=== PATIENT | female | born 1990 | race Hispanic/Latino ===

== ENCOUNTER 2017-11-30 07:49 | Emergency (ER) | payer SELFPAY ==
--- NOTE | 2017-11-30 08:24 | EDPHYS ---
Physician Documentation [facility] Name: Summer Perez Age: 27 yrs Sex: Female : 1990 Arrival Date: 11/30/2017 Time: 07:54 Bed 17 Private MD: None, None ED Physician Clayton Montejo HPI: 11/30 08:21 This 27 yrs old Female presents to ER via Ambulatory with complaints of Cough, rashid Vomiting, Fever. 08:21 The patient or guardian reports cough. Onset: The symptoms/episode began/occurred 2 rashid day(s) ago. Severity of symptoms: At their worst the symptoms were mild, in the emergency department the symptoms are unchanged. Modifying factors: The symptoms are alleviated by nothing. Associated signs and symptoms: The patient has no apparent associated signs or symptoms. The patient has experienced similar episodes in the past, a few times. 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 - Social history:: Smoking status: Patient/guardian denies using tobacco. - Family history:: not pertinent. ROS: 08:21 Eyes: Negative for injury, pain, redness, and discharge, ENT: Negative for injury, rashid pain, and discharge, Neck: Negative for injury, pain, and swelling, Cardiovascular: Negative for chest pain, palpitations, and edema, Abdomen/GI: Negative for abdominal pain, nausea, vomiting, diarrhea, and constipation, Back: Negative for injury and pain, : Negative for injury, bleeding, discharge, and swelling, MS/Extremity: Negative for injury and deformity, Skin: Negative for injury, rash, and discoloration, Neuro: Negative for headache, weakness, numbness, tingling, and seizure, Psych: Negative for depression, anxiety, suicide ideation, homicidal ideation, and hallucinations, Allergy/Immunology: Negative for hives, rash, and allergies, Endocrine: Negative for neck swelling, polydipsia, polyuria, polyphagia, and marked weight changes, Hematologic/Lymphatic: Negative for swollen nodes, abnormal bleeding, and unusual bruising. 08:21 Constitutional: Positive for chills, fever. 08:21 Respiratory: Positive for cough. Exam: 08:21 Constitutional: This is a well developed, well nourished patient who is awake, alert, rashid and in no acute distress. Head/Face: Normocephalic, atraumatic. Eyes: Pupils equal round and reactive to light, extra-ocular motions intact. Lids and lashes normal. Conjunctiva and sclera are non-icteric and not injected. Cornea within normal limits. Periorbital areas with no swelling, redness, or edema. ENT: Nares patent. No nasal discharge, no septal abnormalities noted. Tympanic membranes are normal and external auditory canals are clear. Oropharynx with no redness, swelling, or masses, exudates, or evidence of obstruction, uvula midline. Mucous membranes moist. Neck: Trachea midline, no thyromegaly or masses palpated, and no cervical lymphadenopathy. Supple, full range of motion without nuchal rigidity, or vertebral point tenderness. No Meningismus. Chest/axilla: Normal chest wall appearance and motion. Nontender with no deformity. No lesions are appreciated. Cardiovascular: Regular rate and rhythm with a normal S1 and S2. No gallops, murmurs, or rubs. Normal PMI, no JVD. No pulse deficits. Abdomen/GI: Soft, non-tender, with normal bowel sounds. No distension or tympany. No guarding or rebound. No evidence of tenderness throughout. Back: No spinal tenderness. No costovertebral tenderness. Full range of motion. Female : Normal external genitalia. Skin: Warm, dry with normal turgor. Normal color with no rashes, no lesions, and no evidence of cellulitis. MS/ Extremity: Pulses equal, no cyanosis. Neurovascular intact. Full, normal range of motion. Neuro: Awake and alert, GCS 15, oriented to person, place, time, and situation. Cranial nerves II-XII grossly intact. Motor strength 5/5 in all extremities. Sensory grossly intact. Cerebellar exam normal. Normal gait. 08:21 Respiratory: the patient does not display signs of respiratory distress, Respirations: normal, Breath sounds: bronchial sounds, that are mild, rhonchi, + upper airway congestion. Vital Signs: 08:05 BP 114 / 42; Pulse 74; Resp 19; Temp 98.4(TE); Pulse Ox 100% on R/A; Weight 108.86 kg; ss Height 5 ft. 6 in. (167.64 cm); Pain 8/10; 09:16 BP 117 / 65; Pulse 70; Resp 19; Temp 98.3(O); Pulse Ox 99% on R/A; ae1 08:05 Body Mass Index 38.74 (108.86 kg, 167.64 cm) ss MDM: 07:56 Patient medically screened. [facility] 08:26 Data reviewed: vital signs, nurses notes, radiologic studies, plain films. [facility] 11/30 09:18 Order name: Urine Dipstick--Ancillary (enter results) [facility] 11/30 09:18 Order name: Urine --Ancillary (enter results) [facility] 11/30 08:04 Order name: Chest Single View XRAY [facility] 11/30 08:04 Order name: Urine Test (obtain specimen); Complete Time: 09:04 [facility] 11/30 08:04 Order name: Urine Dipstick-Ancillary (obtain specimen); Complete Time: 09:04 [facility] Administered Medications: 08:00 Drug: Zithromax 500 mg Route: PO; ae1 09:23 Follow up: Response: No adverse reaction ae1 08:40 Drug: Rocephin (cefTRIAXone) 1 grams Route: IM; Site: left gluteus; ae1 09:22 Follow up: Response: No adverse reaction ae1 08:40 Drug: Zofran 4 mg Route: PO; ae1 09:19 Follow up: Response: Nausea is decreased ae1 Disposition: 11/30/17 08:24 Discharged to Home. Impression: Bronchitis, not specified as acute or chronic, Fever, unspecified, Cough. - Condition is Stable. - Discharge Instructions: Acute Bronchitis, Upper Respiratory Infection, Adult, Cool Mist Vaporizers, Cough, Adult, [id number], Cough, Adult. - Prescriptions for Cheratussin AC 10- 100 mg/5 mL Oral liquid - take 10 milliliter by ORAL route every 4 hours; 150 milliliter. Zofran 4 mg Oral Tablet - take 1 tablet by ORAL route every 12 hours As needed; 14 tablet. Albuterol Sulfate 90 mcg/actuation - inhale 1-2 puff by INHALATION route every 4-6 hours; 1 Inhaler. Zithromax 500 mg Oral Tablet - take 1 tablet by ORAL route once daily for 5 days; 5 tablet. - Medication Reconciliation Form, Thank You Letter, Antibiotic Education, Prescription Opioid Use, Work release form form. - Follow up: Private Physician; When: 2 - 3 days; Reason: Recheck today's complaints, Continuance of care, Re-evaluation by your physician. - Problem is new. - Symptoms have improved. Signatures: Dispatcher [employer] EDClayton Multani MD MD cha Smirch, Shelby, RN RN ss Roberth Cerda RN RN ae1
--- NOTE | 2017-11-30 08:24 | ER ---
Nurse's Notes [facility] Name: Summer Perez Age: 27 yrs Sex: Female : 1990 Arrival Date: 11/30/2017 Time: 07:54 Bed 17 Private MD: None, None Diagnosis: Bronchitis, not specified as acute or chronic;Fever, unspecified;Cough Presentation: 11/30 08:00 Presenting complaint: Patient states: headache, chills, painful/ productive cough, and ss intermittent vomiting x 4 days. Transition of care: patient was not received from another setting of care. Onset of symptoms was November 26, 2017. Initial Sepsis Screen: Does the patient meet any 2 criteria? No. Patient's initial sepsis screen is negative. Does the patient have a suspected source of infection? Yes: Productive cough/pneumonia. Care prior to arrival: None. 08:00 Method Of Arrival: Ambulatory ss 08:00 Acuity: SERAFIN 3 ss Triage Assessment: 08:20 General: Appears uncomfortable, obese, Behavior is cooperative, anxious. Pain: ae1 Complains of pain in chest. EENT: Nares nasal congestion . Neuro: Level of Consciousness is awake, alert, obeys commands, Oriented to person, place, time, situation. Cardiovascular: Heart tones S1 S2 present Patient's skin is warm and dry. Respiratory: Reports cough that is productive, Chest pain with cough Airway is patent Respiratory effort is even, unlabored, Respiratory pattern is regular, symmetrical. GI: Abdomen is round non-distended, obese, Bowel sounds present X 4 quads. Reports nausea, Patient currently denies diarrhea, vomiting. : No signs and/or symptoms were reported regarding the genitourinary system. Derm: Skin is normal. Musculoskeletal: No signs and/or symptoms reported regarding the musculoskeletal system. 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 - Social history:: Smoking status: Patient/guardian denies using tobacco. - Family history:: not pertinent. Screenin:07 Abuse screen: Denies threats or abuse. Nutritional screening: No deficits noted. ae1 Tuberculosis screening: No symptoms or risk factors identified. Fall Risk None identified. Assessment: 09:29 GI: Abdomen is round non-distended, obese. ae1 09:31 Reassessment: Patient appears in no apparent distress at this time. No changes from ae1 previously documented assessment. Vital Signs: 08:05 BP 114 / 42; Pulse 74; Resp 19; Temp 98.4(TE); Pulse Ox 100% on R/A; Weight 108.86 kg; ss Height 5 ft. 6 in. (167.64 cm); Pain 8/10; 09:16 BP 117 / 65; Pulse 70; Resp 19; Temp 98.3(O); Pulse Ox 99% on R/A; ae1 08:05 Body Mass Index 38.74 (108.86 kg, 167.64 cm) ED Course: 07:54 Patient arrived in ED. mr 07:54 None, None is Private Physician. mr 07:55 Roberth Cerda RN is Primary Nurse. ae1 07:56 Clayton Montejo MD is Attending Physician. rashid 08:03 Triage completed. ss 08:05 Arm band placed on right wrist. ss 08:26 Chest Single View XRAY Sent. ae1 08:27 X-ray completed. Portable x-ray completed in exam room. Patient tolerated procedure mh1 well. 08:28 Chest Single View XRAY In Process Unspecified. EDMS 09:07 Placed in gown. Bed in low position. Call light in reach. Side rails up X 1. Pulse ox ae1 on. NIBP on. Warm blanket given. 09:28 No provider procedures requiring assistance completed. Patient did not have IV access ae1 during this emergency room visit. Administered Medications: 08:00 Drug: Zithromax 500 mg Route: PO; ae1 09:23 Follow up: Response: No adverse reaction ae1 08:40 Drug: Rocephin (cefTRIAXone) 1 grams Route: IM; Site: left gluteus; ae1 09:22 Follow up: Response: No adverse reaction ae1 08:40 Drug: Zofran 4 mg Route: PO; ae1 09:19 Follow up: Response: Nausea is decreased ae1 Outcome: 08:24 Discharge ordered by . rashid 09:24 Patient left the ED. ae1 09:29 Discharged to home ambulatory. ae1 09:29 Condition: stable 09:29 Discharge instructions given to patient, Instructed on discharge instructions, Demonstrated understanding of instructions, Prescriptions given X 4. Signatures: Dispatcher [employer] EDClayton Multani MD MD cha Rivera, Maria Eladia Mcdaniel 1 Blank Strange RN RN Roberth Cerda RN RN ae1 Corrections: (The following items were deleted from the chart) 08:06 08:00 Initial Sepsis Screen: Does the patient meet any 2 criteria? HR > 90 bpm. Does ss the patient have a suspected source of infection? Yes: Productive cough/pneumonia ss
[2017-11-30] MEDS ORDERED: CEFTRIAXONE 1000 MG/VIAL ONE (08:54)
[2017-11-30] MEDS ORDERED: AZITHROMYCIN 250 MG TAB ONE (08:54)
[2017-11-30] MEDS ORDERED: ONDANSETRON 4 MG (ODT) TAB ONE (08:54)
[2017-11-30 09:29] VITALS: BP 117/65; TEMP 98.3; O2SAT 99
--- NOTE | 2017-11-30 10:57 | RAD REPORT ---
EXAM DESCRIPTION: RAD - Chest Single View - 11/30/2017 8:27 am CLINICAL HISTORY: Headache COMPARISON: 02/03/2016 FINDINGS: Portable technique limits examination quality. The lungs are grossly clear. The heart is normal in size. No displaced fractures. IMPRESSION: No acute intrathoracic process suspected.
[2017-11-30 11:46] LABS: Urine Blood NEGATIVE (NEG); Urine Glucose NEGATIVE (NEG); Urine Protein NEGATIVE (NEG); Urine Specific Gravity 1.025 (1.005-1.030)
== END 2017-11-30 09:24 | disposition home or self-care (01) ==
LOC: ER 07:49
DX: J40 Bronchitis, not specified as acute or chronic (principal); R50.9 Fever, unspecified
CPT/HCPCS: 71045; 81003; 81025; 96372; 99284

== ENCOUNTER 2018-10-02 15:17 | Emergency (ER) | payer SELFPAY ==
[2018-10-02 16:33] LABS: Absolute Lymphocytes (CBC) 2.9 K/uL (0.7-4.9); Absolute Monocytes 0.6 K/uL (0.1-1.3); Absolute Neutrophil 3.4 K/uL (1.8-8.0); Basophils % 1.3 % (0-1.3); Eosinophils % 8.7 % (0-4.4); Hematocrit 39.9 % (36.0-45.0); Lymphocytes % 37.6 % (15.3-44.8); MPV 8.7 fL (7.6-11.3); Monocytes % 8.3 % (3.3-12.3)
[2018-10-02 16:59] LABS: ALT/SGPT 27 U/L (12-78); AST/SGOT 16 U/L (15-37); Albumin 3.7 g/dL (3.4-5.0); Alkaline Phosphatase 95 U/L (45-117); BUN Blood Urea Nitrogen 10 mg/dL (7-18); Bicarbonate 27 mmol/L (21-32); Bilirubin Direct 0.1 mg/dL (0-0.2); Bilirubin Total 0.5 mg/dL (0.2-1.0); Glucose Level 73 mg/dL (74-106); Magnesium 2.1 mg/dL (1.8-2.4); NT PRO-BNP 16 pg/mL (<125); Potassium 3.8 mmol/L (3.5-5.1); Protein, Total 7.4 g/dL (6.4-8.2); Sodium Level 139 mmol/L (136-145); Troponin (Emerg Dept Use Only) < 0.02 ng/mL (0.0-0.045)
--- NOTE | 2018-10-02 17:24 | RAD REPORT ---
EXAM DESCRIPTION: Maru Single View10/02/2018 5:09 pm CLINICAL HISTORY: Chest pain COMPARISON: November 2017 FINDINGS: The lungs appear clear of acute infiltrate. The heart is normal size IMPRESSION: No acute abnormalities displayed
[2018-10-02 17:40] LABS: Protime INR 0.96
--- NOTE | 2018-10-02 17:57 | EDPHYS ---
Physician Documentation [facility] Name: Summer Perez Age: 28 yrs Sex: Female : 1990 Arrival Date: 10/02/2018 Time: 15:20 Bed 20 Private MD: ED Physician Clayton Montejo HPI: 10/02 15:52 This 28 yrs old Female presents to ER via Ambulatory with complaints of Chest jmm Pain, Dizziness. 15:52 The patient or guardian reports chest pain that is located primarily in the anterior [facility] chest wall. The pain radiates to the left shoulder, neck. Associated signs and symptoms: Pertinent positives:. The chest pain is described as aching, sharp. This is a 28 year old female with no chronic medical conditions that presents to the ED with complaints of chest pain radiating to her neck, left arm beginning at approx 1200 today. 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 Patient complaints of numbness to the face and lips. Patient admits to tobacco use, denies recreational drug use. Denies family history of CAD. . 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 - Social history:: Smoking status: Patient/guardian denies using tobacco. - Ebola Screening: : No symptoms or risks identified at this time. ROS: 15:52 Constitutional: Negative for fever, chills, and weight loss. jmm 15:52 Respiratory: Negative for shortness of breath, cough, wheezing, and pleuritic chest pain. 15:52 Neck: 15:52 Cardiovascular: Positive for chest pain. 15:52 Neuro: Positive for numbness. 15:52 All other systems are negative. Exam: 15:52 Constitutional: This is a well developed, well nourished patient who is awake, alert, jmm and in no acute distress. Head/Face: atraumatic. Eyes: EOMI, no conjunctival erythema appreciated ENT: Moist Mucus Membranes Neck: Trachea midline, Supple 15:52 Chest/axilla: Inspection: normal, Palpation: tenderness, that totally reproduces the patient's complaints. 15:52 Cardiovascular: Rate: normal, Rhythm: regular. 15:52 Respiratory: the patient does not display signs of respiratory distress, Respirations: normal, Breath sounds: are clear throughout. 15:52 Abdomen/GI: 15:52 Back: ROM is normal. 15:52 Musculoskeletal/extremity: ROM: intact in all extremities. 15:52 Skin: Appearance: Color: normal in color. 15:52 Neuro: Orientation: is normal, Mentation: is normal, Memory: is normal. 15:52 Psych: Behavior/mood is pleasant, cooperative. Vital Signs: 15:28 BP 178 / 102; Pulse 98; Resp 16; Temp 98.6; Pulse Ox 100% on R/A; Pain 9/10; hb 15:42 BP 144 / 89; Pulse 78; Resp 15; Pulse Ox 100% on R/A; tw2 16:27 BP 134 / 85; Pulse 76; Resp 17; Pulse Ox 100% on R/A; tw2 17:38 BP 142 / 85; Pulse 78; Resp 19; Pulse Ox 100% on R/A; tw2 18:34 BP 133 / 73; Pulse 67; Resp 17; Pulse Ox 100% on R/A; tw2 MDM: 15:52 Patient medically screened. rashid 17:53 WILLIAM Risk Score: TOTAL SCORE = 0. Data reviewed: vital signs, nurses notes, lab test [facility] result(s), EKG, radiologic studies, plain films. Data interpreted: Pulse oximetry: on room air is 100 %. Interpretation: normal. Test interpretation: by ED physician or midlevel provider: ECG. Counseling: I had a detailed discussion with the patient and/or guardian regarding: the historical points, exam findings, and any diagnostic results supporting the discharge/admit diagnosis, lab results, radiology results, the need for outpatient follow up, to return to the emergency department if symptoms worsen or persist or if there are any questions or concerns that arise at home. ED course: HEART SCORE = 1. Low likelihood of ACS. Pain is reproducible. Patient advised to follow up with cardiology for outpatient evaluation. Patient given strict return precautions. Patient understood and agrees with the plan of care. . 10/02 16:01 Order name: Basic Metabolic Panel; Complete Time: 17:03 [facility] 10/02 16:01 Order name: CBC with Diff; Complete Time: 17:03 [facility] 10/02 16:01 Order name: LFT's; Complete Time: 17: [facility] 10/02 16:01 Order name: Magnesium; Complete Time: 17:03 [facility] 10/02 16:01 Order name: NT PRO-BNP; Complete Time: 17:03 [facility] 10/02 16:01 Order name: PT-INR; Complete Time: 17:42 [facility] 10/02 15:31 Order name: EKG - Nurse/Tech; Complete Time: 15:42 10/02 15:31 Order name: EKG; Complete Time: 15:32 10/02 16:01 Order name: Troponin (emerg Dept Use Only); Complete Time: 17:03 [facility] 10/02 16:01 Order name: XRAY Chest (1 view); Complete Time: 17:26 [facility] 10/02 16:01 Order name: Cardiac monitoring; Complete Time: 16:01 [facility] 10/02 16:01 Order name: TSH; Complete Time: 17:03 [facility] 10/02 16:01 Order name: D-Dimer; Complete Time: 17:42 [facility] 10/02 16:01 Order name: IV Saline Lock; Complete Time: 16:27 [facility] 10/02 16:01 Order name: Labs collected and sent; Complete Time: 16:27 [facility] 10/02 16:01 Order name: O2 Per Protocol; Complete Time: 16:01 [facility] 10/02 16:01 Order name: O2 Sat Monitoring; Complete Time: 16:01 [facility] 10/02 16:16 Order name: Urine Dipstick-Ancillary (obtain specimen); Complete Time: 17:55 jmm Administered Medications: 18:00 Drug: Ketorolac 30 mg Route: IVP; Site: right antecubital; tw2 18:34 Follow up: Response: No adverse reaction tw2 Disposition: 10/03 07:02 Co-signature as Attending Physician, Clayton Montejo MD I agree with the assessment and rashid plan of care. Disposition: 10/02/18 17:56 Discharged to Home. Impression: Chest pain, unspecified. - Condition is Stable. - Discharge Instructions: Nonspecific Chest Pain. - Prescriptions for Ibuprofen 800 mg Oral Tablet - take 1 tablet by ORAL route every 8 hours As needed take with food; 30 tablet. - Medication Reconciliation Form, Thank You Letter, Antibiotic Education, Prescription Opioid Use, Work release form, Family Work Release form. - Follow up: Robbin Duffy MD; When: 2 - 3 days; Reason: Recheck today's complaints, Continuance of care, Re-evaluation by your physician. Signatures: Dispatcher [employer] EDClayton Multani MD MD cha Mickail, Joel, PA PA jmm Baxter, Heather, RN RN Rowan Quintero RN RN tw2 Corrections: (The following items were deleted from the chart) 10/02 18:37 17:56 10/02/2018 17:56 Discharged to Home. Impression: Chest pain, unspecified. tw2 Condition is Stable. Forms are Medication Reconciliation Form, Thank You Letter, Antibiotic Education, Prescription Opioid Use. Follow up: Robbin Duffy; When: 2 - 3 days; Reason: Recheck today's complaints, Continuance of care, Re-evaluation by your physician. sabine
--- NOTE | 2018-10-02 17:57 | ER ---
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 Also c/o bilateral shoulder and low back pain x 2 days. Transition of care: patient was not received from another setting of care. Onset of symptoms was October 01, 2018. Risk Assessment: Do you want to hurt yourself or someone else? Patient reports no desire to harm self or others. Care prior to arrival: None. 15:26 Method Of Arrival: Ambulatory 15:26 Acuity: SERAFIN 3 hb 15:30 Initial Sepsis Screen: Does the patient meet any 2 criteria? No. Patient's initial tw2 sepsis screen is negative. Does the patient have a suspected source of infection? No. Patient's initial sepsis screen is negative. 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 - Social history:: Smoking status: Patient/guardian denies using tobacco. - Ebola Screening: : No symptoms or risks identified at this time. Screenin:30 Abuse screen: Denies threats or abuse. Nutritional screening: No deficits noted. tw2 Tuberculosis screening: No symptoms or risk factors identified. Fall Risk None identified. Assessment: 15:30 General: Appears in no apparent distress. obese, Behavior is anxious, pt reports tw2 "recently my mother passed and it just hit me today while i was at work". Pain: Complains of pain in chest Pain does not radiate. Pain began suddenly. Neuro: Level of Consciousness is awake, alert, obeys commands, Oriented to person, place, time, situation. Cardiovascular: Heart tones S1 S2 Patient's skin is warm and dry. Cardiovascular: Reports chest pain. Respiratory: Airway is patent Respiratory effort is even, unlabored, Respiratory pattern is regular, symmetrical, Breath sounds are clear bilaterally. GI: No signs and/or symptoms were reported involving the gastrointestinal system. Abdomen is round distended, obese, Bowel sounds present X 4 quads. : No signs and/or symptoms were reported regarding the genitourinary system. EENT: No signs and/or symptoms were reported regarding the EENT system. Derm: No signs and/or symptoms reported regarding the dermatologic system. Musculoskeletal: Range of motion: intact in all extremities. 16:27 Reassessment: Patient appears in no apparent distress at this time. No changes from tw2 previously documented assessment. Patient and/or family updated on plan of care and expected duration. Pain level reassessed. Patient is alert, oriented x 3, equal unlabored respirations, skin warm/dry/pink. 17:39 Reassessment: Patient appears in no apparent distress at this time. No changes from tw2 previously documented assessment. Patient and/or family updated on plan of care and expected duration. Pain level reassessed. Patient is alert, oriented x 3, equal unlabored respirations, skin warm/dry/pink. 18:35 Reassessment: Patient appears in no apparent distress at this time. No changes from tw2 previously documented assessment. Patient and/or family updated on plan of care and expected duration. Pain level reassessed. Patient is alert, oriented x 3, equal unlabored respirations, skin warm/dry/pink. Vital Signs: 15:28 BP 178 / 102; Pulse 98; Resp 16; Temp 98.6; Pulse Ox 100% on R/A; Pain 9/10; hb 15:42 BP 144 / 89; Pulse 78; Resp 15; Pulse Ox 100% on R/A; tw2 16:27 BP 134 / 85; Pulse 76; Resp 17; Pulse Ox 100% on R/A; tw2 17:38 BP 142 / 85; Pulse 78; Resp 19; Pulse Ox 100% on R/A; tw2 18:34 BP 133 / 73; Pulse 67; Resp 17; Pulse Ox 100% on R/A; tw2 ED Course: 15:20 Patient arrived in ED. rg4 15:28 Triage completed. hb 15:28 Arm band placed on. hb 15:30 Rowan Quintero, RN is Primary Nurse. tw2 15:30 Placed in gown. Bed in low position. Adult w/ patient. ammonium hydroxide operator on. Pulse ox on. tw2 NIBP on. Warm blanket given. 15:46 Mickail, Aj, PA is PHCP. [facility] 15:46 Clayton Montejo MD is Attending Physician. [facility] 15:46 EKG done, by loss control technician. reviewed by Clayton Montejo MD. dt2 16:22 Inserted saline lock: 20 gauge in right antecubital area, using aseptic technique. tw2 ,using aseptic technique. labels verified by pt at bedside Blood collected. Patient maintains SpO2 saturation greater than 95% on room air. 17:11 XRAY Chest (1 view) In Process Unspecified. EDMS 17:55 Robbin Duffy MD is Referral Physician. [facility] 18:37 No provider procedures requiring assistance completed. IV discontinued, intact, tw2 bleeding controlled, No redness/swelling at site. Pressure dressing applied. Administered Medications: 18:00 Drug: Ketorolac 30 mg Route: IVP; Site: right antecubital; tw2 18:34 Follow up: Response: No adverse reaction tw2 Outcome: 17:56 Discharge ordered by MD. jm 18:37 Patient left the ED. tw2 18:37 Discharged to home ambulatory, with significant other. tw2 18:37 Condition: stable 18:37 Discharge instructions given to patient, significant other, Instructed on discharge instructions, follow up and referral plans. medication usage, Demonstrated understanding of instructions, follow-up care, medications, Prescriptions given X 1. Signatures: Dispatcher [employer] EDMS Aj Moncada PA PA Tamera Pascal RN RN Rowan Quintero RN RN tw2 Miri Edge 4 Ciarra Mejia dt2
[2018-10-02] MEDS ORDERED: KETOROLAC 30 MG/ML INJ ONE (18:08)
--- NOTE | 2018-10-02 19:04 | EKG ---
Test Date: 2018-10-02 Test Time: 15:40:45 Delinquent Account Clerk: INOCENTE MEASUREMENT RESULTS: Intervals: Rate: 80 SD: 162 QRSD: 84 QT: 380 QTc: [address]: P: 34 SD: 162 QRS: 40 T: 38 INTERPRETIVE STATEMENTS: Normal sinus rhythm Cannot rule out Anterior infarct, age undetermined Abnormal ECG Compared to ECG 02/03/2016 09:22:42 Myocardial infarct finding now present Sinus arrhythmia no longer present Electronically Signed On 10-02-18 19:02:47 PROCESS SPECIALIST by Robbin Duffy
[2018-10-02 19:12] VITALS: TEMP 98.6; O2SAT 100
[2018-10-02 19:17] VITALS: BP 133/73
== END 2018-10-02 18:37 | disposition home or self-care (01) ==
LOC: ER 15:17
DX: R07.9 Chest pain, unspecified (principal); R42 Dizziness and giddiness
CPT/HCPCS: 36415; 71045; 80048; 80076; 83735; 83880; 84443; 84484; 85025; 85379; 85610; 93005; 96374; 99285

== ENCOUNTER 2018-10-26 22:12 | Emergency (ER) | payer SELFPAY ==
[2018-10-26 23:14] LABS: Absolute Lymphocytes (CBC) 2.5 K/uL (0.7-4.9); Absolute Monocytes 0.8 K/uL (0.1-1.3); Absolute Neutrophil 3.4 K/uL (1.8-8.0); Eosinophils % 5.3 % (0-4.4); Hematocrit 39.2 % (36.0-45.0); Lymphocytes % 35.5 % (15.3-44.8); MPV 9.1 fL (7.6-11.3); Monocytes % 10.9 % (3.3-12.3); RBC Red Blood Cell Count 4.79 M/uL (3.86-4.86)
[2018-10-26 23:24] LABS: BUN Blood Urea Nitrogen 12 mg/dL (7-18); Bicarbonate 25 mmol/L (21-32); Glucose Level 110 mg/dL (74-106); Potassium 3.9 mmol/L (3.5-5.1); Sodium Level 142 mmol/L (136-145)
[2018-10-26] MEDS ORDERED: MECLIZINE HCL 12.5 MG TAB ONE (23:29)
[2018-10-26] MEDS ORDERED: NA CHLORIDE 0.9% 1,000 ML ONE (23:29)
[2018-10-26] MEDS ORDERED: DIAZEPAM 5 MG TABLET ONE (23:29)
[2018-10-27 00:15] LABS: Urine Blood 2+ (NEG); Urine Glucose NEGATIVE (NEG); Urine Protein NEGATIVE (NEG); Urine Specific Gravity >1.030 (1.005-1.030)
--- NOTE | 2018-10-27 00:34 | ER ---
Nurse's Notes [facility] Name: Summer Perez Age: 28 yrs Sex: Female : 1990 Arrival Date: 10/26/2018 Time: 22:13 Bed 19 Private MD: Diagnosis: Paresthesia of skin-Lelft sided;Dizziness and giddiness;Syncope and collapse;Weakness Presentation: 10/26 22:13 Presenting complaint: EMS states: Pt reported feeling tingling on the left arms and jb4 face after going to the grocery store with her boyfriend. Boyfriend reports that after they got home she was breathing fast and passed out. 22:13 Transition of care: patient was not received from another setting of care. Onset of jb4 symptoms was October 26, 2018. Risk Assessment: Do you want to hurt yourself or someone else? Patient reports no desire to harm self or others. Initial Sepsis Screen: Does the patient meet any 2 criteria? No. Patient's initial sepsis screen is negative. Does the patient have a suspected source of infection? No. Patient's initial sepsis screen is negative. Care prior to arrival: None. 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 - Social history:: Smoking status: Patient/guardian denies using tobacco, Patient/guardian denies using alcohol. - Ebola Screening: : No symptoms or risks identified at this time. Screenin:51 Abuse screen: Denies threats or abuse. Nutritional screening: No deficits noted. ea Tuberculosis screening: No symptoms or risk factors identified. Fall Risk None identified. Assessment: 22:51 General: Appears uncomfortable, Behavior is calm, cooperative, appropriate for age. ea Pain: Complains of pain in chest. 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 Speech is normal, Facial symmetry appears normal, pt reports tingling on left side of face that travels to left shoulder and arm. Cardiovascular: Patient's skin is warm and dry. Respiratory: Airway is patent Respiratory effort is even, unlabored, Respiratory pattern is regular, symmetrical. GI: Abdomen is non-distended. Derm: Skin is pink, warm \T\ dry. 23:45 Reassessment: Patient and/or family updated on plan of care and expected duration. Pain ea level reassessed. Patient is alert, oriented x 3, equal unlabored respirations, skin warm/dry/pink. 10/27 00:51 Reassessment: Patient and/or family updated on plan of care and expected duration. Pain ea level reassessed. Patient is alert, oriented x 3, equal unlabored respirations, skin warm/dry/pink. Discharge instructions given to patient, verbalized the understanding of instruction Patient states symptoms have improved. Vital Signs: 10/26 22:13 BP 134 / 74; Pulse 81; Resp 16; Temp 98.4; Pulse Ox 100% on R/A; Weight 90.72 kg (R); jb4 Height 5 ft. 4 in. (162.56 cm) (R); Pain 10/10; 23:50 BP 117 / 59; Pulse 80; Resp 18 S; Pulse Ox 98% on R/A; ea 10/27 00:40 BP 123 / 63; Pulse 74; Resp 18; Pulse Ox 97% on R/A; ea 10/26 22:13 Body Mass Index 34.33 (90.72 kg, 162.56 cm) jb4 ED Course: 10/26 22:13 Patient arrived in ED. ds1 22:13 Arm band placed on right wrist. jb4 22:22 Triage completed. jb4 22:31 Carlos Van MD is Attending Physician. kdr 22:50 Elizabeth Mcdonald RN is Primary Nurse. ea 22:51 Patient has correct armband on for positive identification. Placed in gown. Bed in low ea position. Call light in reach. Side rails up X2. 23:[address] via wheelchair. nj 23:32 CT completed. Patient tolerated procedure well. Patient moved back from CT. nj 23:33 CT Head Brain wo Cont In Process Unspecified. EDMS 10/27 00:52 No provider procedures requiring assistance completed. IV discontinued, intact, ea bleeding controlled, No redness/swelling at site. Pressure dressing applied. Administered Medications: 10/26 23:30 Drug: NS 0.9% 1000 ml Route: IV; Rate: 1 bolus; Site: right antecubital; ea 10/27 00:30 Follow up: Response: No adverse reaction; IV Status: Completed infusion; IV Intake: ea 1000ml 10/26 23:30 Drug: Antivert 25 mg Route: PO; ea 10/27 00:06 Follow up: Response: No adverse reaction ea 10/26 23:30 Drug: Valium 5 mg Route: PO; ea 10/27 00:06 Follow up: Response: No adverse reaction ea Intake: 00:30 IV: 1000ml; Total: 1000ml. ea Outcome: 00:34 Discharge ordered by . kdr 00:52 Condition: improved ea 00:52 Discharge instructions given to patient, Instructed on discharge instructions, follow up and referral plans. medication usage, Demonstrated understanding of instructions, follow-up care, medications, Prescriptions given X 2. 00:57 Patient left the ED. ea 00:57 Discharged to home ambulatory, with significant other. ea Signatures: Dispatcher [employer] EDMS Carlos Van MD MD kdr Sanford, Demi ds1 Bj Youngblood, RN RN Peter Cedillo Elena RN RN dorothy
--- NOTE | 2018-10-27 00:34 | EDPHYS ---
Physician Documentation [facility] Name: Summer Perez Age: 28 yrs Sex: Female : 1990 Arrival Date: 10/26/2018 Time: 22:13 Bed 19 Private MD: ED Physician Carlos Van HPI: 10/27 00:31 This 28 yrs old Female presents to ER via EMS with complaints of tingling and kdr syncope. 00:53 The patient has experienced syncope, became unresponsive, collapsed, lost kdr consciousness. Onset: The symptoms/episode began/occurred suddenly, just prior to arrival. Duration: This was a single episode, that lasted 15 minute(s). Context: the episode(s) was witnessed, by a friend, occurred at home, occurred while the patient was at rest, Just prior to the episode the patient experienced lightheadedness, numbness, tingling, weakness, The patient generally felt weak and had left sided tingling. Associated injury: The patient did not suffer any apparent associated injury. Associated signs and symptoms: Pertinent positives: dizziness, tingling, weakness. Current symptoms: Generalized weakness and slight tingling to the left side of her face. The patient has not experienced similar symptoms in the past. The patient has not recently seen a physician. 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 - Social history:: Smoking status: Patient/guardian denies using tobacco, Patient/guardian denies using alcohol. - Ebola Screening: : No symptoms or risks identified at this time. ROS: 10/27 00:53 Constitutional: Negative for fever, chills, and weight loss generalized weakness, kdr fatigue Eyes: Negative for injury, pain, redness, and discharge, ENT: Negative for injury, pain, and discharge, Neck: Negative for injury, pain, and swelling, Cardiovascular: Negative for chest pain, palpitations, and edema, Respiratory: Negative for shortness of breath, cough, wheezing, and pleuritic chest pain, Abdomen/GI: Negative for abdominal pain, nausea, vomiting, diarrhea, and constipation, Back: Negative for injury and pain, : Negative for injury, bleeding, discharge, and swelling, MS/Extremity: Negative for injury and deformity, Skin: Negative for injury, rash, and discoloration, Psych: Negative for depression, anxiety, suicide ideation, homicidal ideation, and hallucinations, Allergy/Immunology: Negative for hives, rash, and allergies, Endocrine: Negative for neck swelling, polydipsia, polyuria, polyphagia, and marked weight changes, Hematologic/Lymphatic: Negative for swollen nodes, abnormal bleeding, and unusual bruising. Neuro: Positive for syncope, tingling, weakness. Exam: 00:53 Constitutional: This is a well developed, well nourished patient who is awake, alert, kdr and in no acute distress. Head/Face: Normocephalic, atraumatic. Eyes: Pupils equal round and reactive to light, extra-ocular motions intact. Lids and lashes normal. Conjunctiva and sclera are non-icteric and not injected. Cornea within normal limits. Periorbital areas with no swelling, redness, or edema. ENT: Nares patent. No nasal discharge, no septal abnormalities noted. Tympanic membranes are normal and external auditory canals are clear. Oropharynx with no redness, swelling, or masses, exudates, or evidence of obstruction, uvula midline. Mucous membranes moist. Neck: Trachea midline, no thyromegaly or masses palpated, and no cervical lymphadenopathy. Supple, full range of motion without nuchal rigidity, or vertebral point tenderness. No Meningismus. Chest/axilla: Normal chest wall appearance and motion. Nontender with no deformity. No lesions are appreciated. Cardiovascular: Regular rate and rhythm with a normal S1 and S2. No gallops, murmurs, or rubs. Normal PMI, no JVD. No pulse deficits. Respiratory: Lungs have equal breath sounds bilaterally, clear to auscultation and percussion. No rales, rhonchi or wheezes noted. No increased work of breathing, no retractions or nasal flaring. Abdomen/GI: Soft, non-tender, with normal bowel sounds. No distension or tympany. No guarding or rebound. No evidence of tenderness throughout. Back: No spinal tenderness. No costovertebral tenderness. Full range of motion. Skin: Warm, dry with normal turgor. Normal color with no rashes, no lesions, and no evidence of cellulitis. MS/ Extremity: Pulses equal, no cyanosis. Neurovascular intact. Full, normal range of motion. Neuro: Awake and alert, GCS 15, oriented to person, place, time, and situation. Cranial nerves II-XII grossly intact. Motor strength 5/5 in all extremities. Sensory grossly intact. Cerebellar exam normal. Normal gait. Psych: Awake, alert, with orientation to person, place and time. Behavior, mood, and affect are within normal limits. Vital Signs: 10/26 22:13 BP 134 / 74; Pulse 81; Resp 16; Temp 98.4; Pulse Ox 100% on R/A; Weight 90.72 kg (R); jb4 Height 5 ft. 4 in. (162.56 cm) (R); Pain 10/10; 23:50 BP 117 / 59; Pulse 80; Resp 18 S; Pulse Ox 98% on R/A; ea 10/27 00:40 BP 123 / 63; Pulse 74; Resp 18; Pulse Ox 97% on R/A; ea 10/26 22:13 Body Mass Index 34.33 (90.72 kg, 162.56 cm) jb4 MDM: 00:34 Patient medically screened. kdr 00:53 Data reviewed: vital signs, nurses notes, lab test result(s), radiologic studies. kdr Counseling: I had a detailed discussion with the patient and/or guardian regarding: the historical points, exam findings, and any diagnostic results supporting the discharge/admit diagnosis, lab results, radiology results, the need for outpatient follow up. ED course: The patient is not on any medications and does not have a known hypercoagulable state. No reason by history or exam to have a CVA. 10/26 22:42 Order name: CBC with Diff; Complete Time: 00:07 kdr 10/26 22:42 Order name: Chem 7; Complete Time: 00:07 kdr 10/27 00:06 Order name: Urine Dipstick--Ancillary (enter results) md 10/27 00:06 Order name: Urine --Ancillary (enter results) md 10/27 00:15 Order name: Urine --Ancillary [facility] 10/27 00:15 Order name: Urine Dipstick-Ancillary [facility] 10/26 22:42 Order name: Urine Dipstick-Ancillary (obtain specimen); Complete Time: 00:06 kdr 10/26 22:42 Order name: Urine Test (obtain specimen); Complete Time: 00:06 kdr 10/26 22:54 Order name: CT Head Brain wo Cont kdr Administered Medications: 10/26 23:30 Drug: NS 0.9% 1000 ml Route: IV; Rate: 1 bolus; Site: right antecubital; ea 10/27 00:30 Follow up: Response: No adverse reaction; IV Status: Completed infusion; IV Intake: ea 1000ml 10/26 23:30 Drug: Antivert 25 mg Route: PO; ea 10/27 00:06 Follow up: Response: No adverse reaction ea 10/26 23:30 Drug: Valium 5 mg Route: PO; ea 10/27 00:06 Follow up: Response: No adverse reaction ea Disposition: 10/27/18 00:34 Discharged to Home. Impression: Paresthesia of skin - Lelft sided, Dizziness and giddiness, Syncope and collapse, Weakness. - Condition is Stable. - Discharge Instructions: Vertigo, [id number], Weakness, Kfyl-za-Jmrs, Dizziness, Gjrv-[id number]. - Prescriptions for Antivert 25 mg Oral Tablet - take 1 tablet by ORAL route every 8 hours As needed; 20 tablet. Valium 5 mg Oral Tablet - take 1 tablet by ORAL route every 8 hours As needed; 6 tablet. - Medication Reconciliation Form, Thank You Letter form. - Follow up: Private Physician; When: 2 - 3 days; Reason: If symptoms return, Further diagnostic work-up, Recheck today's complaints, Continuance of care, Re-evaluation by your physician. - Problem is new. - Symptoms have improved. Signatures: Dispatcher [employer] EDMS Carlos Van MD MD kdr Bryson, James, RN RN jb4 Elizabeth Mcdonald RN RN ea Corrections: (The following items were deleted from the chart) 00:57 00:34 10/27/2018 00:34 Discharged to Home. Impression: Paresthesia of skin - Lelft ea sided; Dizziness and giddiness; Syncope and collapse; Weakness. Condition is Stable. Forms are Medication Reconciliation Form, Thank You Letter, Antibiotic Education, Prescription Opioid Use. Follow up: Private Physician; When: 2 - 3 days; Reason: If symptoms return, Further diagnostic work-up, Recheck today's complaints, Continuance of care, Re-evaluation by your physician. Problem is new. Symptoms have improved. kdr
[2018-10-27 01:18] VITALS: TEMP 98.4
[2018-10-27 01:26] VITALS: BP 123/63; O2SAT 97
--- NOTE | 2018-10-27 09:21 | EKG ---
Test Date: 2018-10-26 Test Time: 22:20:42 Investment Representative: GM MEASUREMENT RESULTS: Intervals: Rate: 83 NM: 164 QRSD: 80 QT: 364 QTc: 427 [place]: P: 66 NM: 164 QRS: 45 T: 33 INTERPRETIVE STATEMENTS: Normal sinus rhythm Cannot rule out Anterior infarct, age undetermined Abnormal ECG Compared to ECG 10/02/2018 15:40:45 No significant changes Electronically Signed On 10-27-18 09:21:07 CDT by Robbin Duffy
--- NOTE | 2018-10-27 12:11 | RAD REPORT ---
EXAM DESCRIPTION: Head Brain Wo Cont CLINICAL HISTORY: 28 years Female tingling on left side of face/body and syncope COMPARISON: None TECHNIQUE: Images were obtained in axial, sagittal, and coronal planes. This exam was performed according to our departmental dose-optimization program which includes use of Automated Exposure Control, adjustment of the mA and/or kV according to patient size and/or use of i terative reconstruction technique. FINDINGS: Ventricular system appears normal. No abnormal areas of increased or decreased attenuation are seen involving the brain parenchyma. No e xtra-axial fluid collections noted. No evidence for skull fracture. Symmetric aeration of mastoid air cells bilaterally. Mild mucosal thi ckening left maxillary antrum. IMPRESSION: No acute intracranial abnormality. No evidence for hemorrhage, mass lesion, or large acu te infarction. Electronically signed by: Sulma Morales MD 10/26/2018 11:36 PM CDT Due to temporary technical issues with the PACS/Fluency reporting system, reports are being signed by the in house radiologist as a courtesy to ensure prompt reporting. The interpreting radiologist is f ully responsible for the content of the report.
== END 2018-10-27 00:57 | disposition home or self-care (01) ==
LOC: ER 22:12
DX: R55 Syncope and collapse (principal); R42 Dizziness and giddiness; R53.1 Weakness
CPT/HCPCS: 36415; 70450; 80048; 81003; 81025; 85025; 93005; 96360; 99284; J7030

== ENCOUNTER 2020-07-29 16:54 | Emergency (ER) | payer SELFPAY ==
--- OUTSIDE RECORDS SUMMARY | 2020-07-29 16:57 | XMS REPORT | Continuity of Care Document ---
:1990 Author Organization [facility] t Address [address] [place] [address] Care Team Providers Name Role Phone Unavailable Unavailable Unavailable Problems This patient has no known problems. Allergies, Adverse Reactions, Alerts This patient has no known allergies or adverse reactions. Social History Smoking Status Start Date Stop Date Source Heavy Tobacco Smoker [facility] Medications Ordered Filled Start Stop Current Ordering Indication Dosage Frequency Signature Comments Components Source Medication Medication Date Date Medication? Clinician (SIG) Name Name dicyclomine dicyclomine No 1 QID dicyclomin [place] 20 mg 20 mg e 20 mg da tablet Take tablet Take tablet [facility] 1 tablet 4 1 tablet 4 Take 1 a l times a day times a day tablet 4 Health by oral by oral times a Outrea c route as route as day by h needed. needed. oral route Pro gram as needed. Vital Signs Vital Name Observation Time Observation Value Comments Source BP Diastolic 2020-04-23 00:00:00 78 mm[Hg] [facility] Height 2020-04-23 00:00:00 66 [in_i] [facility] BMI (Body Mass 2020-04-23 00:00:00 42.7 kg/m2 [place] plumbing [facility] Index) [facility] BP Systolic 2020-04-23 00:00:00 138 mm[Hg] [facility] Body Weight 2020-04-23 00:00:00 264.8 [lb_av] [facility] Procedures Procedure Date / Time Performing Clinician Source Performed Bilateral Tubal Ligation [facility] Appendectomy [facility] Plan of Care Planned Activity Planned Date Details Comments Source Diagnostic Test 2020-04-23 CMP, serum or [facility] Pending 00:00:00 plasma [code = Health Outrea ch CMP, serum or Program plasma] Diagnostic Test 2020-04-23 CBC w/ auto diff [facility] Pending 00:00:00 [code = CBC w/ Health Outrea ch auto diff] Program Diagnostic Test 2020-04-23 TSH, [facility] Pending 00:00:00 ultra-sensitive, Health Outr each serum [code = TSH, Program ultra-sensitive, serum] Diagnostic Test 2020-04-23 lipase, serum or [place] [facility] Pending 00:00:00 plasma [code = Health Outrea ch lipase, serum or Program plasma] Encounters Start End Encounter Admission Attending Care Care Encounter Source Date/Time Date/Time Type Type Clinicians Facility Department ID 2020-04-23 2020-04-23 Carlitos José CAAMPARO [place] - [id number] [place] 00:00:00 00:00:00 Samson Rocha MD: [id number] [facility] [employer] [employer] helicopter [employer] [place] [address] [facility] [address], [place] [facility] [id number] , Ph. Results This patient has no known results.
[2020-07-29] MEDS ORDERED: KETOROLAC 30 MG/ML INJ ONE (18:32)
--- NOTE | 2020-07-29 19:00 | RAD REPORT ---
EXAM DESCRIPTION: Maru Silverman (2 Views)07/29/2020 6:53 pm CLINICAL HISTORY: Cough COMPARISON: 2019 FINDINGS: The lungs appear clear of acute infiltrate. The heart is normal size IMPRESSION: No acute abnormalities displayed
--- NOTE | 2020-07-29 19:15 | ER ---
Nurse's Notes [facility] Name: Summer Perez Age: 30 yrs Sex: Female : 1990 Arrival Date: 07/29/2020 Time: 16:56 Bed 5 Private MD: Diagnosis: Chest pain on breathing Presentation: 07/29 17:18 Chief complaint: Patient states: reports pain with inspiration, vomited one time today, em denies cough or fever, started this morning. Coronavirus screen: Client denies travel out of the [place] in the last 14 days. Ebola Screen: Patient negative for fever greater than or equal to 101.5 degrees Fahrenheit, and additional compatible Ebola Virus Disease symptoms Patient denies exposure to infectious person. Patient denies travel to an Ebola-affected area in the 21 days before illness onset. No symptoms or risks identified at this time. Initial Sepsis Screen: Does the patient meet any 2 criteria? No. Patient's initial sepsis screen is negative. Does the patient have a suspected source of infection? No. Patient's initial sepsis screen is negative. Risk Assessment: Do you want to hurt yourself or someone else? Patient reports no desire to harm self or others. Onset of symptoms was July 29, 2020. 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 - Social history:: Smoking status: Patient reports the use of cigarette tobacco products, denies chronic smoking, but will smoke occasionally. Screenin:03 Abuse screen: Denies threats or abuse. Nutritional screening: No deficits noted. tw2 Tuberculosis screening: No symptoms or risk factors identified. Fall Risk None identified. Assessment: 18:03 Reassessment: pt given urine specimen collection cup and pt ambulates to restroom at tw2 this time. 18:10 General: Appears in no apparent distress. obese, well groomed, Behavior is calm, tw2 cooperative, appropriate for age. Pain: Complains of pain in LEFT rib area. Neuro: Level of Consciousness is awake, alert, obeys commands, Oriented to person, place, time, situation. Cardiovascular: Heart tones S1 S2 Patient's skin is warm and dry. Respiratory: Airway is patent Respiratory effort is even, unlabored, Respiratory pattern is regular, symmetrical, Breath sounds are clear bilaterally. GI: No signs and/or symptoms were reported involving the gastrointestinal system. Abdomen is round non-distended, obese, Bowel sounds present X 4 quads. Abd is soft and non tender. : No signs and/or symptoms were reported regarding the genitourinary system. EENT: No signs and/or symptoms were reported regarding the EENT system. Derm: No signs and/or symptoms reported regarding the dermatologic system. Musculoskeletal: Reports pain with movement of LEFT arm in left rib area. Vital Signs: 17:18 BP 162 / 81; Pulse 81; Resp 18; Temp 98.2; Pulse Ox 100% on R/A; Weight 99.79 kg; em Height 5 ft. 6 in. (167.64 cm); Pain 10/10; 18:44 BP 112 / 71; Pulse 78; Resp 17; Pulse Ox 98% on R/A; tw2 19:19 BP 120 / 68; Pulse 76; Resp 15; Temp 98; Pulse Ox 99% on R/A; rv 17:18 Body Mass Index 35.51 (99.79 kg, 167.64 cm) em ED Course: 16:56 Patient arrived in ED. as 17:20 Triage completed. em 17:21 Arm band placed on. em 17:29 [facility]C [facility] kb 17:29 Clayton Montejo MD is Attending Physician. kb 18:01 Rowan Quintero, RN is Primary Nurse. tw2 18:01 Bed in low position. Call light in reach. Pulse ox on. NIBP on. tw2 18:22 Placed in gown. tw2 18:49 Chest Pa And Lat (2 Views) XRAY In Process Unspecified. EDMS 19:13 Primary Nurse role handed off by Rowan Quintero, TONY mw2 19:14 London Zhao, TONY is Primary Nurse. rv 19:19 No provider procedures requiring assistance completed. Patient did not have IV access rv during this emergency room visit. Administered Medications: 18:22 Drug: TORadol 30 mg Route: IM; Site: left deltoid; tw2 19:19 Follow up: Response: No adverse reaction; Pain is decreased rv Outcome: 19:14 Discharge ordered by . eliot 19:20 Discharged to home ambulatory. rv 19:20 Condition: good 19:20 Discharge instructions given to patient, Instructed on discharge instructions, follow up and referral plans. medication usage, Demonstrated understanding of instructions, follow-up care, medications, Prescriptions given X 1. 19:20 Patient left the ED. rv Signatures: Dispatcher [employer] EDMonique Blanco, KARYNA-Karolina BROWNINGP-Adán Sheikh, RN RN Tamia Lenz Tara RN RN tw2 Siddhartha Ferrera 2 London Zhao, RN RN rv
--- NOTE | 2020-07-29 19:15 | EDPHYS ---
Physician Documentation [facility] Name: Summer Perez Age: 30 yrs Sex: Female : 1990 Arrival Date: 07/29/2020 Time: 16:56 Bed 5 Private MD: ED Physician Clayton Montejo HPI: 07/29 19:11 This 30 yrs old Female presents to ER via Ambulatory with complaints of kb Abdominal Pain. 19:11 The patient or guardian reports chest pain that is located primarily in the left kb anterior/lateral lower ribs. The pain does not radiate. Associated signs and symptoms: The patient has no apparent associated signs or symptoms. The chest pain is described as aching. Duration: The patient or guardian reports a single episode. Modifying factors: the symptoms are aggravated by deep breath, movement, palpation of area. Severity of pain: At its worst the pain was mild moderate in the emergency department the pain is unchanged. The patient has not experienced similar symptoms in the past. The patient has not recently seen a physician. 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 Today she started having pain to left lower/lateral ribs when she took a deep breath or moved. . 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 - Social history:: Smoking status: Patient reports the use of cigarette tobacco products, denies chronic smoking, but will smoke occasionally. ROS: 19:14 Constitutional: Negative for fever, chills, and weight loss, Respiratory: Negative for kb shortness of breath, cough, wheezing, and pleuritic chest pain, Abdomen/GI: Negative for abdominal pain, nausea, vomiting, diarrhea, and constipation, MS/Extremity: Negative for injury and deformity, Skin: Negative for injury, rash, and discoloration, Neuro: Negative for headache, weakness, numbness, tingling, and seizure. 19:14 Cardiovascular: Positive for chest pain, Negative for edema, orthopnea, palpitations, paroxysmal nocturnal dyspnea. Exam: 19:13 Constitutional: This is a well developed, well nourished patient who is awake, alert, kb and in no acute distress. Head/Face: Normocephalic, atraumatic. Cardiovascular: Regular rate and rhythm with a normal S1 and S2. No gallops, murmurs, or rubs. Normal PMI, no JVD. No pulse deficits. Respiratory: Lungs have equal breath sounds bilaterally, clear to auscultation and percussion. No rales, rhonchi or wheezes noted. No increased work of breathing, no retractions or nasal flaring. Abdomen/GI: Soft, non-tender, with normal bowel sounds. No distension or tympany. No guarding or rebound. No evidence of tenderness throughout. Skin: Warm, dry with normal turgor. Normal color with no rashes, no lesions, and no evidence of cellulitis. MS/ Extremity: Pulses equal, no cyanosis. Neurovascular intact. Full, normal range of motion. Neuro: Awake and alert, GCS 15, oriented to person, place, time, and situation. Cranial nerves II-XII grossly intact. Motor strength 5/5 in all extremities. Sensory grossly intact. Cerebellar exam normal. Normal gait. 19:13 Chest/axilla: Palpation: tenderness, that is moderate, of the left lateral anterior chest and lower anterior rib, that totally reproduces the patient's complaints. Vital Signs: 17:18 BP 162 / 81; Pulse 81; Resp 18; Temp 98.2; Pulse Ox 100% on R/A; Weight 99.79 kg; em Height 5 ft. 6 in. (167.64 cm); Pain 10/10; 18:44 BP 112 / 71; Pulse 78; Resp 17; Pulse Ox 98% on R/A; tw2 19:19 BP 120 / 68; Pulse 76; Resp 15; Temp 98; Pulse Ox 99% on R/A; rv 17:18 Body Mass Index 35.51 (99.79 kg, 167.64 cm) em MDM: 18:03 Patient medically screened. kb 19:11 Data reviewed: vital signs, nurses notes. Data interpreted: Pulse oximetry: on room air kb is 98 %. Interpretation: normal. Counseling: I had a detailed discussion with the patient and/or guardian regarding: the historical points, exam findings, and any diagnostic results supporting the discharge/admit diagnosis, radiology results, the need for outpatient follow up, a family practitioner, to return to the emergency department if symptoms worsen or persist or if there are any questions or concerns that arise at home. 07/29 18:20 Order name: Urine Dipstick--Ancillary (enter results) bd 07/29 18:20 Order name: Urine --Ancillary (enter results) bd 07/29 18:12 Order name: Chest Pa And Lat (2 Views) XRAY; Complete Time: 19:02 kb 07/29 18:17 Order name: Urine Dipstick-Ancillary (obtain specimen); Complete Time: 18:17 tw2 07/29 18:17 Order name: Urine Test (obtain specimen); Complete Time: 18:17 tw2 Administered Medications: 18:22 Drug: TORadol 30 mg Route: IM; Site: left deltoid; tw2 19:19 Follow up: Response: No adverse reaction; Pain is decreased rv Disposition: 07/30 10:08 Co-signature as Attending Physician, Clayton Montejo MD I agree with the assessment and rashid plan of care. Disposition: 07/29/20 19:14 Discharged to Home. Impression: Chest pain on breathing. - Condition is Stable. - Discharge Instructions: Costochondritis, [id number], Chest Wall Pain, Upxy-mi-Ocop. - Prescriptions for Ibuprofen 800 mg Oral Tablet - take 1 tablet by ORAL route every 8 hours As needed take with food; 30 tablet. - Medication Reconciliation Form, Thank You Letter, Antibiotic Education, Prescription Opioid Use form. - Follow up: Emergency Department; When: As needed; Reason: Trouble breathing. Follow up: Private Physician; When: 2 - 3 days; Reason: Recheck today's complaints, Continuance of care, Re-evaluation by your physician. Signatures: Dispatcher [employer] Monique Byrd, SUPERVISOR INSPECTION AND TESTING-C SUPERVISOR INSPECTION AND TESTING-Clayton Bello MD MD cha Munoz, Edgar, RN RN Rowan Moreland, RN RN tw2 London Zhao RN RN rv Corrections: (The following items were deleted from the chart) 07/29 19:20 19:14 07/29/2020 19:14 Discharged to Home. Impression: Chest pain on breathing. rv Condition is Stable. Forms are Medication Reconciliation Form, Thank You Letter, Antibiotic Education, Prescription Opioid Use. Follow up: Emergency Department; When: As needed; Reason: Trouble breathing. Follow up: Private Physician; When: 2 - 3 days; Reason: Recheck today's complaints, Continuance of care, Re-evaluation by your physician. kb
[2020-07-29 21:00] LABS: Urine Blood NEGATIVE (NEG); Urine Glucose NEGATIVE (NEG); Urine Protein NEGATIVE (NEG); Urine Specific Gravity 1.025 (1.005-1.030)
[2020-07-31 06:10] VITALS: BP 120/68; TEMP 98; O2SAT 99
== END 2020-07-29 19:20 | disposition home or self-care (01) ==
LOC: ER 16:54
DX: R07.1 Chest pain on breathing (principal); Z72.0 Tobacco use
CPT/HCPCS: 71046; 81003; 81025; 96372; 99284

== ENCOUNTER 2020-10-01 09:21 | Emergency (ER) | payer MEDICAID, SELFPAY ==
[2020-10-01 10:12] LABS: Absolute Lymphocytes (CBC) 1.9 K/uL (0.7-4.9); Basophils % 0.9 % (0-1.3); Hematocrit 37.2 % (36.0-45.0); MPV 8.6 fL (7.6-11.3); RBC Red Blood Cell Count 5.04 M/uL (3.86-4.86)
[2020-10-01] MEDS ORDERED: MAGNES/ALUMIN/SIMET 30ML UCUP ONE (10:12)
[2020-10-01] MEDS ORDERED: LIDOCAINE VISCOUS 2% SOLN 15 ML UDC ONE (10:12)
[2020-10-01 10:27] LABS: BUN Blood Urea Nitrogen 8 mg/dL (7-18); Bicarbonate 24 mmol/L (21-32); Glucose Level 84 mg/dL (74-106); Lipase 83 U/L (73-393); Potassium 3.8 mmol/L (3.5-5.1); Sodium Level 141 mmol/L (136-145); Troponin (Emerg Dept Use Only) < 0.02 ng/mL (0.0-0.045)
--- NOTE | 2020-10-01 10:36 | EDPHYS ---
Physician Documentation [facility] Name: Summer Perez Age: 30 yrs Sex: Female : 1990 Arrival Date: 10/01/2020 Time: 09:26 Bed 4 Private MD: IZAIAH Physician Clayton Montejo HPI: 10/01 10:13 This 30 yrs old Female presents to ER via Ambulatory with complaints of Chest jr8 Pressure, Epigastric Pain, Nausea. 10:13 The patient or guardian reports chest pain that is located primarily in the anterior jr8 chest wall, bilaterally. The pain does not radiate. Associated signs and symptoms: Pertinent positives: nausea. The chest pain is described as a pressure. Duration: The patient or guardian reports multiple episodes, that are intermittent. Modifying factors: The symptoms are alleviated by nothing. the symptoms are aggravated by nothing. Severity of pain: At its worst the pain was mild in the emergency department the pain is unchanged. The patient has not experienced similar symptoms in the past. The patient has not recently seen a physician. Patient stated that she gagged herself with tooth brush on accident the other day. Had nausea and burning sensation in chest region shortly after that. Now having bilateral anterior chest wall pressure. 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 - Social history:: Smoking status: Patient reports the use of cigarette tobacco products, denies chronic smoking, but will smoke occasionally. ROS: 10:13 Eyes: Negative for injury, pain, redness, and discharge, ENT: Negative for injury, jr8 pain, and discharge, Neck: Negative for injury, pain, and swelling, Back: Negative for injury and pain, MS/Extremity: Negative for injury and deformity, Skin: Negative for injury, rash, and discoloration, Neuro: Negative for headache, weakness, numbness, tingling, and seizure. 10:13 Respiratory: Negative for shortness of breath, cough, wheezing, and pleuritic chest pain. 10:13 Cardiovascular: Positive for chest pain, Negative for edema, orthopnea, palpitations, paroxysmal nocturnal dyspnea. 10:13 Abdomen/GI: Positive for nausea, Negative for abdominal pain, vomiting, diarrhea, constipation, abdominal distension, hematemesis, black/tarry stool, rectal bleeding, bowel incontinence, flatulence. Exam: 10:11 Constitutional: This is a well developed, well nourished patient who is awake, alert, jr8 and in no acute distress. Cardiovascular: Regular rate and rhythm with a normal S1 and S2. No gallops, murmurs, or rubs. Normal PMI, no JVD. No pulse deficits. Respiratory: Lungs have equal breath sounds bilaterally, clear to auscultation and percussion. No rales, rhonchi or wheezes noted. No increased work of breathing, no retractions or nasal flaring. Abdomen/GI: Soft, non-tender, with normal bowel sounds. No distension or tympany. No guarding or rebound. No evidence of tenderness throughout. Back: No spinal tenderness. No costovertebral tenderness. Full range of motion. Skin: Warm, dry with normal turgor. Normal color with no rashes, no lesions, and no evidence of cellulitis. MS/ Extremity: Pulses equal, no cyanosis. Neurovascular intact. Full, normal range of motion. Neuro: Awake and alert, GCS 15, oriented to person, place, time, and situation. Cranial nerves II-XII grossly intact. Motor strength 5/5 in all extremities. Sensory grossly intact. Cerebellar exam normal. Normal gait. 10:11 Chest/axilla: Inspection: normal, Palpation: tenderness, that is mild, of the anterior aspect of right upper chest, anterior aspect of left upper chest and mid-sternal area, that partially reproduces the patient's complaints, Lymph nodes: lymphadenopathy is not appreciated. 10:11 ECG was reviewed by the Attending Physician. Vital Signs: 09:33 BP 139 / 86; Pulse 88; Resp 16; Temp 97.9; Pulse Ox 100% on R/A; Weight 113.4 kg; hb Height 5 ft. 6 in. (167.64 cm); Pain 9/10; 10:00 BP 110 / 74; Pulse 77; Resp 16; Pulse Ox 100% on R/A; sv 09:33 Body Mass Index 40.35 (113.40 kg, 167.64 cm) hb MDM: 09:36 Patient medically screened. [facility] 10:34 Data reviewed: vital signs, nurses notes, lab test result(s), EKG, radiologic studies, [facility] plain films. Data interpreted: Pulse oximetry: on room air is 100 %. Interpretation: normal. Counseling: I had a detailed discussion with the patient and/or guardian regarding: the historical points, exam findings, and any diagnostic results supporting the discharge/admit diagnosis, lab results, radiology results, the need for outpatient follow up, a family practitioner, to return to the emergency department if symptoms worsen or persist or if there are any questions or concerns that arise at home. ED course: Patient feeling much better. Most likely esophagitis with Reflux. Will treat as such. If worse knows to come back. Will f/u with PCP for continued care . 10/01 09:50 Order name: CBC with Diff; Complete Time: 10:23 [facility] 10/01 09:50 Order name: Basic Metabolic Panel; Complete Time: 10: [facility] 10/01 09:50 Order name: Troponin (emerg Dept Use Only); Complete Time: 10: [facility] 10/01 09:50 Order name: XRAY CXR (1 view) [facility] 10/01 09:51 Order name: Lipase; Complete Time: 10: 10/01 09:50 Order name: IV; Complete Time: 10: [facility] 10/01 09:50 Order name: EKG - Nurse/Tech; Complete Time: 10: 10/01 09:50 Order name: EKG; Complete Time: 09:51 [facility] 10/01 10:20 Order name: EKG; Complete Time: 10:20 sv EC:11 Rate is 78 beats/min. Rhythm is regular, Normal Sinus Rhythm. QRS Dewey is Normal. CA jr8 interval is normal at 162 msec. QRS interval is normal at 80 msec. QT interval is normal at 376 msec. No Q waves. T waves are Normal. No ST changes noted. Clinical impression: Normal ECG. Interpreted by me. Reviewed by me. Administered Medications: 10:00 Drug: GI Cocktail without - (Maalox Suspension 30 ml, Lidocaine Liquid 2 % 15 jd3 ml) Route: PO; 10:57 Follow up: Response: No adverse reaction sv Disposition: 10/02 05:38 Co-signature as Attending Physician, Clayton Montejo MD I agree with the assessment and rashid plan of care. Disposition: 02/18/21 10:36 Discharged to Home. Impression: Gastro-esophageal reflux disease with esophagitis. - Condition is Stable. - Discharge Instructions: Food Choices for Gastroesophageal Reflux Disease, Adult, Gastroesophageal Reflux Disease, Adult, [id number]. - Medication Reconciliation Form, Thank You Letter, Antibiotic Education, Prescription Opioid Use form. - Follow up: Private Physician; When: 5 - 6 days; Reason: Recheck today's complaints, Continuance of care, Re-evaluation by your physician. - Problem is new. - Symptoms have improved. - Notes: Pepcid 20 mg over the counter: To take 1 tablet in the AM and one tablet in the PM for the next 14 days Signatures: Dispatcher [employer] EDFlor Nova RN RN Clayton Chacko MD MD cha Roszak, Josh, PA PA jr8 Tamera Huddleston RN RN Shahid Hoang RN RN [id number] Corrections: (The following items were deleted from the chart) 10/01 10:36 10:36 10/01/2020 10:36 Discharged to Home. Impression: Esophagitis. Condition is jr8 Stable. Forms are Medication Reconciliation Form, Thank You Letter, Antibiotic Education, Prescription Opioid Use. Follow up: Private Physician; When: 5 - 6 days; Reason: Recheck today's complaints, Continuance of care, Re-evaluation by your physician. Problem is new. Symptoms have improved. jr8 10:57 10:36 10/01/2020 10:36 Discharged to Home. Impression: Gastro-esophageal reflux disease sv with esophagitis. Condition is Stable. Discharge Instructions: Food Choices for Gastroesophageal Reflux Disease, Adult, Gastroesophageal Reflux Disease, Adult, [id number]. Forms are Medication Reconciliation Form, Thank You Letter, Antibiotic Education, Prescription Opioid Use. Follow up: Private Physician; When: 5 - 6 days; Reason: Recheck today's complaints, Continuance of care, Re-evaluation by your physician. Problem is new. Symptoms have improved. jr8
--- NOTE | 2020-10-01 10:36 | ER ---
Nurse's Notes [facility] Name: Summer Perez Age: 30 yrs Sex: Female : 1990 Arrival Date: 10/01/2020 Time: 09:26 Bed 4 Private MD: Diagnosis: Gastro-esophageal reflux disease with esophagitis Presentation: 10/01 09:33 Chief complaint: "I gagged when brushing my teeth last week and ever since I have had hb burning chest pain and nausea.'. Coronavirus screen: At this time, the client does not indicate any symptoms associated with coronavirus-19. Ebola Screen: No symptoms or risks identified at this time. Initial Sepsis Screen: Does the patient meet any 2 criteria? No. Patient's initial sepsis screen is negative. Does the patient have a suspected source of infection? No. Patient's initial sepsis screen is negative. Risk Assessment: Do you want to hurt yourself or someone else? Patient reports no desire to harm self or others. Onset of symptoms was September 25, 2020. 09:33 Method Of Arrival: Ambulatory hb 09:33 Acuity: SERAFIN 3 hb Historical: - Allergies: 09:35 No Known Allergies; hb - PMHx: 09:35 ruptured appendix; hb - PSHx: 09:35 Appendectomy; Tonsillectomy; Tubal ligation; hb - Immunization history:: Adult Immunizations up to date. - Social history:: Smoking status: Patient reports the use of cigarette tobacco products, denies chronic smoking, but will smoke occasionally. Screenin:45 Abuse screen: Denies threats or abuse. Denies injuries from another. Nutritional sv screening: No deficits noted. Tuberculosis screening: No symptoms or risk factors identified. Fall Risk None identified. Assessment: 09:45 General: Appears in no apparent distress. comfortable, obese, well groomed, well sv developed, Behavior is calm, cooperative, appropriate for age. Pain: Complains of pain in anterior aspect of left upper chest and anterior aspect of right upper chest Pain does not radiate. Pain currently is 9 out of 10 on a pain scale. Quality of pain is described as dull, Pain began awhile Is intermittent. Neuro: Level of Consciousness is awake, alert, obeys commands, Oriented to person, place, time, situation, Moves all extremities. Full function Gait is steady, Speech is normal. Cardiovascular: Patient's skin is warm and dry. Respiratory: Airway is patent Respiratory effort is even, unlabored, Respiratory pattern is regular, symmetrical. Derm: Skin is intact, Skin is pink, warm \\T\\ dry. Musculoskeletal: Range of motion: intact in all extremities. 10:57 Reassessment: Patient appears in no apparent distress at this time. No changes from sv previously documented assessment. Patient and/or family updated on plan of care and expected duration. Pain level reassessed. Patient is alert, oriented x 3, equal unlabored respirations, skin warm/dry/pink. Vital Signs: 09:33 BP 139 / 86; Pulse 88; Resp 16; Temp 97.9; Pulse Ox 100% on R/A; Weight 113.4 kg; hb Height 5 ft. 6 in. (167.64 cm); Pain 9/10; 10:00 BP 110 / 74; Pulse 77; Resp 16; Pulse Ox 100% on R/A; sv 09:33 Body Mass Index 40.35 (113.40 kg, 167.64 cm) hb ED Course: 09:26 Patient arrived in ED. as 09:34 Triage completed. hb 09:35 Arm band placed on. hb 09:36 Bret Harkins PA is PHCP. jr8 09:36 Clayton Montejo MD is Attending Physician. jr8 09:44 Flor Cuevas, TONY is Primary Nurse. sv 09:45 Patient has correct armband on for positive identification. Placed in gown. Bed in low sv position. Call light in reach. Pulse ox on. NIBP on. Door closed. Head of bed elevated. 09:55 EKG done, by ED staff, reviewed by Bret HERNANDEZ. sv 09:55 Patient maintains SpO2 saturation greater than 95% on room air. sv 09:58 Initial lab(s) drawn, by mo, sent to lab. Inserted saline lock: 22 gauge in left kj1 antecubital area, using aseptic technique. Blood collected. 10:18 X-ray(s) taken. sv 10:20 XRAY CXR (1 view) Sent. sv 10:27 XRAY CXR (1 view) In Process Unspecified. EDMS 10:56 No provider procedures requiring assistance completed. IV discontinued, intact, sv bleeding controlled, No redness/swelling at site. Pressure dressing applied. Administered Medications: 10:00 Drug: GI Cocktail without - (Maalox Suspension 30 ml, Lidocaine Liquid 2 % 15 jd3 ml) Route: PO; 10:57 Follow up: Response: No adverse reaction sv Outcome: 10:36 Discharge ordered by . cindy 10:56 Discharged to home ambulatory. sv 10:56 Condition: stable 10:56 Discharge instructions given to patient, Instructed on discharge instructions, follow up and referral plans. Demonstrated understanding of instructions, follow-up care. 10:57 Patient left the ED. sv Signatures: Dispatcher [employer] Flor Laureano RN RN Tamia Abdi Josh, PA PA jr8 Tamera Huddleston RN RN Shahid Hoang RN RN jChelsi Hardin kj1 Corrections: (The following items were deleted from the chart) 10:01 10:01 Initial lab(s) drawn, by me, sent to lab. kj1 kj1 10:01 10:01 Inserted saline lock: 22 gauge in left antecubital area, using aseptic technique. kj1 Blood collected. kj1
--- NOTE | 2020-10-01 10:59 | RAD REPORT ---
EXAM DESCRIPTION: RAD - Chest Single View - 10/01/2020 10:27 am CLINICAL HISTORY: CHEST PAIN COMPARISON: Two view chest July 2020 TECHNIQUE: AP portable chest image was obtained 10/01/2020 10:27 am . FINDINGS: Lung pond are clear. Trachea is midline. No hilar abnormality identified. No pneumomedia stinum or subcutaneous emphysema changes identifiable. Interstitial pattern matches comparison. Heart and vasculature are normal. No measurable pleural effusion and no pneumothorax. No acute bony abnorm ality seen. No acute aortic findings suspected. IMPRESSION: No acute cardiopulmonary process. No significant change from comparison study.
[2020-10-01 11:03] VITALS: TEMP 97.9; O2SAT 100
[2020-10-01 11:04] VITALS: BP 110/74
== END 2020-10-01 10:57 | disposition home or self-care (01) ==
LOC: ER 09:21
DX: K21.00 Gastro-esophageal reflux disease with esophagitis, without bleeding (principal); F17.210 Nicotine dependence, cigarettes, uncomplicated
CPT/HCPCS: 36415; 71045; 80048; 83690; 84484; 85025; 99284

== ENCOUNTER 2020-11-30 09:30 | Emergency (ER) | payer MEDICAID ==
--- OUTSIDE RECORDS SUMMARY | 2020-11-30 09:32 | XMS REPORT | Continuity of Care Document ---
:1990 Author Organization [facility] t Address [address] [place] [address] Care Team Providers Name Role Phone Unavailable Unavailable Unavailable Problems This patient has no known problems. Allergies, Adverse Reactions, Alerts This patient has no known allergies or adverse reactions. Social History Smoking Status Start Date Stop Date Source Heavy Tobacco Smoker [facility] Medications Ordered [...] Diastolic 2020-04-23 00:00:00 78 mm[Hg] [place] [facility] Height 2020-04-23 00:00:00 66 [facility] BMI (Body Mass 2020-04-23 00:00:00 42.7 kg/m2 [place] [employer] [facility]) [facility] BP Systolic 2020-04-23 00:00:00 138 mm[facility]Hg[facility] Body Weight 2020-04-23 00:00:00 264.8 [lb_av] [place] [facility] Procedures Procedure Date / Time Performing Clinician Source Performed Bilateral Tubal Ligation [place] [facility] Appendectomy [place] [facility] Plan of Care Planned Activity Planned Date Details Comments Source Diagnostic Test 2020-04-23 CMP, serum or [place] [facility] Pending 00:00:00 plasma [code = Health Outrea ch CMP, serum or Program plasma] Diagnostic Test 2020-04-23 CBC w/ auto diff [place] [facility] Pending 00:00:00 [code = CBC w/ Health Outrea ch auto diff] Program Diagnostic Test 2020-04-23 TSH, [place] [facility] Pending 00:00:00 ultra-sensitive, Health Outr each serum [code = TSH, Program ultra-sensitive, serum] Diagnostic Test 2020-04-23 lipase, serum or [place] [facility] Pending 00:00:00 plasma [code = Health Outrea ch lipase, serum or Program plasma] Encounters Start End Encounter Admission Attending Care Care Encounter Source Date/Time Date/Time Type Type Clinicians Facility Department ID 2020-04-23 2020-04-23 Carlitos José WAAMPARO [place] - [id number] [place] 00:00:00 00:00:00 Samson Rocha MD: [id number] [facility] [employer] [address] [place] [address] [facility] [address], [facility] [phone] , Ph. Results This patient has no known results.
--- NOTE | 2020-11-30 10:41 | RAD REPORT ---
EXAM DESCRIPTION: CT - Head Brain Wo Cont - 11/30/2020 10:32 am CLINICAL HISTORY: HEADACHE COMPARISON: Head Brain Wo Cont dated 10/26/2018 TECHNIQUE: Axial 5 mm thick images of the head were obtained without IV contrast. All CT scans are performed using dose optimization technique as appropriate and may include automated exposure control or mA/KV adjustment according to patient size. FINDINGS: No intracranial hemorrhage, mass, edema or shift of mid-line structures. No acute infarcti on changes seen. No abnormal extra-axial fluid collections. Ventricles are normal. Mastoid air cells and visualized portions of the paranasal sinuses are clear. No acute bony findings. No identifiable change from comparison. IMPRESSION: Negative non-contrast CT head examination.
[2020-11-30] MEDS ORDERED: METOCLOPRAMIDE 10 MG/2mL INJ ONE (10:49)
[2020-11-30] MEDS ORDERED: dexAMETHasone 10 MG/ML VIAL ONE (10:49)
[2020-11-30] MEDS ORDERED: DIPHENHYDRAMINE 50 MG/ML VIAL ONE (10:49)
[2020-11-30] MEDS ORDERED: NA CHLORIDE 0.9% 500 ML ONE (10:49)
[2020-11-30 10:55] LABS: Absolute Lymphocytes (CBC) 2.1 K/uL (0.7-4.9); Hematocrit 41.3 % (36.0-45.0); Lymphocytes % 29.1 % (15.3-44.8); RBC Red Blood Cell Count 5.11 M/uL (3.86-4.86)
[2020-11-30 11:15] LABS: BUN Blood Urea Nitrogen 9 mg/dL (7-18); Bicarbonate 27 mmol/L (21-32); Glucose Level 89 mg/dL (74-106); Potassium 4.1 mmol/L (3.5-5.1); Sodium Level 139 mmol/L (136-145)
--- NOTE | 2020-11-30 12:08 | RAD REPORT ---
EXAM DESCRIPTION: CT - Head angio - 11/30/2020 11:48 am CLINICAL HISTORY: HEADACHE TECHNIQUE: During dynamic enhancement using nonionic IV contrast, axial 1 millimeter thick images of the head were obtained. Sagittal and axial reconstruction images were generated using MIP technique and reviewed. All CT scans are performed using dose optimization technique as appropriate and may include automated exposure control or mA/KV adjustment according to patient size. COMPARISON: CT head same date FINDINGS: No aneurysm or vascular malformation identified. Major venous sinuses are patent. No stenosis, named branch occlusion, vasculitis or other significant vascular finding identifiable. L eft vertebral artery is dominant. The small distal vertebral artery on the right is normal anatomic v ariant. IMPRESSION: Negative CT angio head examination.
[2020-11-30 12:10] LABS: Blood Morphology Comment NOTED (NOT SEEN); Platelet Estimate ADEQ; Platelets, Giant PRESENT; White Blood Cell Scan OK (OK)
[2020-11-30 12:11] LABS: Anisocytosis 2+
--- NOTE | 2020-11-30 12:11 | RAD REPORT ---
EXAM DESCRIPTION: CT - Neck Angio - 11/30/2020 11:49 am CLINICAL HISTORY: HEADACHE TECHNIQUE: During dynamic enhancement using nonionic IV contrast, axial 2 mm thick images of the nec k were obtained. Sagittal and axial reconstruction images were generated using MIP technique and revi ewed. All CT scans are performed using dose optimization technique as appropriate and may include automated exposure control or mA/KV adjustment according to patient size. FINDINGS: No aneurysm or vascular malformation identified. No carotid or vertebral dissection. No aortic arch or great vessel origin abnormality seen. Left vertebral artery origin is unremarkable. The left vertebral artery is the dominant vessel. Right vertebral artery origin is unremarkable. The right vertebral artery is small along its entire course as a normal variant. This is not suspected t o be vertebral dissection. No stenosis, vasculitis or other significant carotid artery finding. No focal abnormality of either vertebral artery. Basilar artery is normal. IMPRESSION: Negative CT angio neck examination.
--- NOTE | 2020-11-30 12:25 | EDPHYS ---
Physician Documentation [facility] Name: Summer Perez Age: 30 yrs Sex: Female : 1990 Arrival Date: 11/30/2020 Time: 09:35 Bed 13 Private MD: ED Physician Tal Bustamante HPI: 11/30 10:09 This 30 yrs old Female presents to ER via Ambulatory with complaints of jmm Headache. 10:09 The patient complains of pain to the top of head, left ear, left pentecostal, left frontal jmm area, left temporal area, left occipital area and left base of the skull. Onset: The symptoms/episode began/occurred gradually, 1 week(s) ago. Associated signs and symptoms: Pertinent positives: nausea, Photophobia. The symptoms are alleviated by nothing. the symptoms are aggravated by lights. The patient has not experienced similar symptoms in the past. This is a 30 year old female with no chronic medical conditions that presents to the ED with complaints of left sided headache worsening over the past week. Denies fever. Sensitive to light. Patient states she normally has frontal headaches but the character is different for this one. . Historical: - Allergies: 09:59 No Known Allergies; ss - Home Meds: 09:59 None [Active]; ss - PMHx: 09:59 None; ss - PSHx: 09:59 Appendectomy; Tubal ligation; ss - Immunization history:: Adult Immunizations up to date. - Social history:: Smoking status: Patient reports the use of cigarette tobacco products, denies chronic smoking, but will smoke occasionally. ROS: 10:09 Constitutional: Negative for fever, chills, and weight loss, Cardiovascular: Negative jmm for chest pain, palpitations, and edema, Respiratory: Negative for shortness of breath, cough, wheezing, and pleuritic chest pain. 10:09 Neuro: Positive for headache. 10:09 All other systems are negative. Exam: 10:09 Head/Face: atraumatic. Eyes: EOMI, no conjunctival erythema appreciated ENT: Moist jmm Mucus Membranes Neck: Trachea midline, Supple Chest/axilla: Normal chest wall appearance and motion. Cardiovascular: Regular rate and rhythm. No edema appreciated Respiratory: Normal respirations, no respiratory distress appreciated Abdomen/GI: Non distended, soft Back: Normal ROM Skin: General appearance color normal MS/ Extremity: Moves all extremities, no obvious deformities appreciated, no edema noted to the lower extremities Neuro: Awake and alert, normal gait Psych: Behavior is normal, Mood is normal, Patient is cooperative and pleasant 10:09 Constitutional: The patient appears alert, awake, uncomfortable. Vital Signs: 09:59 BP 133 / 64; Pulse 89; Resp 16; Temp 98.1; Pulse Ox 98% ; Weight 113.4 kg; Height 5 ft. ss 6 in. (167.64 cm); Pain 10/10; 10:20 BP 133 / 87; Pulse 80; Resp 16; Pulse Ox 100% on R/A; vg1 11:25 BP 111 / 56; Pulse 73; Resp 16; Pulse Ox 100% ; Pain 7/10; vg1 12:40 BP 119 / 66; Pulse 70; Resp 16; Pulse Ox 100% on R/A; vg1 09:59 Body Mass Index 40.35 (113.40 kg, 167.64 cm) ss MDM: 10:09 Patient medically screened. sabine 12:23 Data reviewed: vital signs, nurses notes. Counseling: I had a detailed discussion with sabine the patient and/or guardian regarding: the historical points, exam findings, and any diagnostic results supporting the discharge/admit diagnosis, lab results, radiology results, the need for outpatient follow up, to return to the emergency department if symptoms worsen or persist or if there are any questions or concerns that arise at home. ED course: imaging studies negative. PAYNE is relieved. I do not suspect sah or meningitis. patient advised to follow up with neuro and otherwise given strict return precautions. Patient understood and agrees with the plan of care. . 11/30 10:17 Order name: CBC with Diff; Complete Time: 12:12 [facility] 11/30 10:17 Order name: BMP; Complete Time: 11:21 [facility] 11/30 11:15 Order name: Urine --Ancillary (enter results) 11/30 11:15 Order name: Urine Dipstick--Ancillary (enter results) 11/30 11:15 Order name: Urine --Ancillary EDMA 11/30 11:15 Order name: Urine Dipstick-Ancillary EDMA 11/30 10:17 Order name: CT Head Brain wo Cont; Complete Time: 10:47 [facility] 11/30 11:22 Order name: CT Head Angio; Complete Time: 12:12 [facility] 11/30 11:22 Order name: CT Neck Angio; Complete Time: 12:12 [facility] 11/30 12:10 Order name: CBC Smear Scan; Complete Time: 12:12 [facility] 11/30 10:17 Order name: Saline Lock; Complete Time: 10:40 [facility] 11/30 10:18 Order name: Urine Test (obtain specimen); Complete Time: 11:13 [facility] Administered Medications: 10:45 Drug: NS 0.9% 500 ml Route: IV; Rate: bolus; Site: right antecubital; sr5 12:41 Follow up: IV Status: Completed infusion; IV Intake: 500ml vg1 10:47 Drug: diphenhydrAMINE 12.5 mg Route: IVP; Site: right antecubital; sr5 12:41 Follow up: Response: No adverse reaction vg1 10:49 Drug: Decadron - Dexamethasone 10 mg Route: IVP; Site: right antecubital; sr5 12:40 Follow up: Response: No adverse reaction vg1 10:51 Drug: Reglan (metoCLOPramide) 10 mg {Note: added to 500mL 0.9% bolus.} Route: IVP; sr5 Site: right antecubital; 12:40 Follow up: Response: No adverse reaction; Pain is decreased vg1 Disposition: 17:47 Co-signature as Attending Physician, Tal Bustamante MD I agree with the assessment and tw4 plan of care. Disposition: 11/30/20 12:24 Discharged to Home. Impression: Headache. - Condition is Stable. - Discharge Instructions: General Headache Without Cause. - Medication Reconciliation Form, Thank You Letter, Antibiotic Education, Prescription Opioid Use form. - Follow up: Arnie Godfrey MD; When: 2 - 3 days; Reason: Recheck today's complaints, Continuance of care, Re-evaluation by your physician. Signatures: Dispatcher [employer] [facility] Aj Moncada PA PA Blank Garrison, RN RN ReseckVj mcdowell RN RN sr5 Tal Bustamante MD MD tw4 Elaina Edge RN RN vg1 Corrections: (The following items were deleted from the chart) 12:41 12:24 11/30/2020 12:24 Discharged to Home. Impression: Headache. Condition is Stable. vg1 Forms are Medication Reconciliation Form, Thank You Letter, Antibiotic Education, Prescription Opioid Use. Follow up: Arnie Godfrey; When: 2 - 3 days; Reason: Recheck today's complaints, Continuance of care, Re-evaluation by your physician. sabine
--- NOTE | 2020-11-30 12:25 | ER ---
Nurse's Notes [facility] Name: Summer Perez Age: 30 yrs Sex: Female : 1990 Arrival Date: 11/30/2020 Time: 09:35 Bed 13 [facility] MD: Diagnosis: Headache Presentation: 11/30 09:58 Chief complaint: Patient states: L sided headache with nausea that began 1 week ago. ss Denies fever. Pt also reports photosensitivity. Coronavirus screen: Client denies travel out of the [place] in the last 14 days. Ebola Screen: Patient denies exposure to infectious person. Patient denies travel to an Ebola-affected area in the 21 days before illness onset. Initial Sepsis Screen: Does the patient meet any 2 criteria? No. Patient's initial sepsis screen is negative. Does the patient have a suspected source of infection? No. Patient's initial sepsis screen is negative. Risk Assessment: Do you want to hurt yourself or someone else? Patient reports no desire to harm self or others. Onset of symptoms was November 23, 2020. 09:58 Method Of Arrival: Ambulatory ss 09:58 Acuity: SERAFIN 3 ss Historical: - Allergies: 09:59 No Known Allergies; ss - Home Meds: 09:59 None [Active]; ss - PMHx: 09:59 None; ss - PSHx: 09:59 Appendectomy; Tubal ligation; ss - Immunization history:: Adult Immunizations up to date. - Social history:: Smoking status: Patient reports the use of cigarette tobacco products, denies chronic smoking, but will smoke occasionally. Screenin:21 Abuse screen: Denies threats or abuse. Nutritional screening: No deficits noted. vg1 Tuberculosis screening: No symptoms or risk factors identified. Fall Risk No fall in past 12 months (0 pts). No secondary diagnosis (0 pts). IV access (20 points). Ambulatory Aid- None/Bed Rest/Nurse Assist (0 pts). Gait- Normal/Bed Rest/Wheelchair (0 pts) Mental Status- Oriented to own ability (0 pts). Total Rubi Fall Scale indicates No Risk (0-24 pts). Assessment: 10:18 General: Appears in no apparent distress. uncomfortable, Behavior is calm, cooperative. vg1 Pain: Complains of pain in left side of neck, c/o headache Pain currently is 10 out of 10 on a pain scale. Pain began a week ago. Neuro: Level of Consciousness is awake, alert, obeys commands, Oriented to person, place, time, situation. Neuro: Reports photophobia. Cardiovascular: Patient's skin is warm and dry. Respiratory: Airway is patent Respiratory effort is even, unlabored. GI: Reports nausea. : No signs and/or symptoms were reported regarding the genitourinary system. EENT: No signs and/or symptoms were reported regarding the EENT system. Derm: Skin is intact, is healthy with good turgor. Musculoskeletal: Circulation, motion, and sensation intact. 11:25 Reassessment: Patient appears in no apparent distress at this time. No changes from vg1 previously documented assessment. Patient and/or family updated on plan of care and expected duration. Pain level reassessed. Patient is alert, oriented x 3, equal unlabored respirations, skin warm/dry/pink. Vital Signs: 09:59 BP 133 / 64; Pulse 89; Resp 16; Temp 98.1; Pulse Ox 98% ; Weight 113.4 kg; Height 5 ft. ss 6 in. (167.64 cm); Pain 10/10; 10:20 BP 133 / 87; Pulse 80; Resp 16; Pulse Ox 100% on R/A; vg1 11:25 BP 111 / 56; Pulse 73; Resp 16; Pulse Ox 100% ; Pain 7/10; vg1 12:40 BP 119 / 66; Pulse 70; Resp 16; Pulse Ox 100% on R/A; vg1 09:59 Body Mass Index 40.35 (113.40 kg, 167.64 cm) ED Course: 09:35 Patient arrived in ED. mr 09:58 Triage completed. ss 09:59 Arm band placed on right wrist. ss 10:00 Aj Moncada PA is PHCP. [facility] 10:00 Tal Bustamante MD is Attending Physician. [facility] 10:08 Elaina Edge, TNOY is Primary Nurse. vg1 10:21 Patient has correct armband on for positive identification. Placed in gown. Call light vg1 in reach. Side rails up X 1. Adult w/ patient. 10:30 CT Head Brain wo Cont In Process Unspecified. EDMS 10:40 Initial lab(s) drawn, by me, sent to lab. Inserted saline lock: 20 gauge in right vg1 antecubital area, using aseptic technique. Blood collected. 11:48 CT Head Angio In Process Unspecified. EDMS 11:48 CT Neck Angio In Process Unspecified. EDMS 12:24 Arnie Godfrey MD is Referral Physician. [facility] 12:41 No provider procedures requiring assistance completed. IV discontinued, intact, vg1 bleeding controlled, No redness/swelling at site. Pressure dressing applied. Administered Medications: 10:45 Drug: NS 0.9% 500 ml Route: IV; Rate: bolus; Site: right antecubital; sr5 12:41 Follow up: IV Status: Completed infusion; IV Intake: 500ml vg1 10:47 Drug: diphenhydrAMINE 12.5 mg Route: IVP; Site: right antecubital; sr5 12:41 Follow up: Response: No adverse reaction vg1 10:49 Drug: Decadron - Dexamethasone 10 mg Route: IVP; Site: right antecubital; sr5 12:40 Follow up: Response: No adverse reaction vg1 10:51 Drug: Reglan (metoCLOPramide) 10 mg {Note: added to 500mL 0.9% bolus.} Route: IVP; sr5 Site: right antecubital; 12:40 Follow up: Response: No adverse reaction; Pain is decreased vg1 Intake: 12:41 IV: 500ml; Total: 500ml. vg1 Outcome: 12:24 Discharge ordered by . [facility] 12:41 Discharged to home ambulatory, with family. vg1 12:41 Condition: stable 12:41 Discharge instructions given to patient, Instructed on discharge instructions, follow up and referral plans. Demonstrated understanding of instructions, follow-up care. 12:41 Patient left the ED. vg1 Signatures: Dispatcher [employer] EDMS Aj Moncada PA PA jmm RiveraSymone mr Blank Strange, RN RN ss Vj Marsh RN RN sr5 Elaina Edge RN RN vg1
[2020-11-30 12:49] VITALS: TEMP 98.1
[2020-11-30 12:50] VITALS: O2SAT 100
[2020-11-30 12:53] VITALS: BP 119/66
[2020-11-30 13:03] LABS: Urine Blood NEGATIVE (Negative); Urine Glucose NEGATIVE (Negative); Urine Protein NEGATIVE (Negative); Urine Specific Gravity 1.015 (1.005-1.030); Urine Specific Gravity/Preg 1.015 (1.005-1.030)
== END 2020-11-30 12:41 | disposition home or self-care (01) ==
LOC: ER 09:30
DX: R51.9 Headache, unspecified (principal); F17.210 Nicotine dependence, cigarettes, uncomplicated
CPT/HCPCS: 85025; 80048; 36415; 81025; 81003; 70450; 70496; 70498; Q9967; J2765; J1200; J1100; J7040; 96361; 96374; 96375; 99284

== ENCOUNTER 2020-12-29 07:25 | Emergency (ER) | payer MEDICAID ==
--- OUTSIDE RECORDS SUMMARY | 2020-12-29 07:29 | XMS REPORT | Continuity of Care Document ---
:1990 Author Organization [facility] t Address [address] [place] [address] Care Team Providers Name Role Phone Unavailable Unavailable Unavailable Problems This patient has no known problems. Allergies, Adverse Reactions, Alerts This patient has no known allergies or adverse reactions. 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 [facility] Index) [facility] Out[facility] Program BP Systolic 2020-04-23 00:00:00 138 mm[Hg] [facility] Body Weight 2020-04-23 00:00:00 264.8 [lb_av] [place] [facility] Procedures Procedure Date / Time Performing Clinician Source Performed Bilateral Tubal Ligation [place] [facility] Appendectomy [facility] Plan of Care Planned Activity Planned Date Details Comments Source Diagnostic Test 2020-04-23 CMP, serum or [facility] Pending 00:00:00 plasma [code = Health Outrea ch CMP, serum or Program plasma] Diagnostic Test 2020-04-23 CBC w/ auto diff [place] [facility] Pending 00:00:00 [code = CBC w/ Health Outrea ch auto diff] Program Diagnostic Test 2020-04-23 TSH, [place] [facility] Pending 00:00:00 ultra-sensitive, Health Outr each serum [code = TSH, Program ultra-sensitive, serum] Diagnostic Test 2020-04-23 lipase, serum or [place] [facility] Pending 00:00:00 plasma [code = Health Outrea ch lipase, serum or Program plasma] Encounters Start End Encounter Admission Attending Care Care Encounter Source Date/Time Date/Time Type Type Clinicians Facility Department ID 2020-04-23 2020-04-23 Carlitos MCDONALD [place] - [id number] [place] 00:00:00 00:00:00 Samson Rocha MD: [id number] [facility] Ep[place] [address] [address] [facility] [address] [place] Program [phone] , Ph. Results This patient has no known results.
--- NOTE | 2020-12-29 07:51 | EDPHYS ---
Physician Documentation [facility] Name: Summer Perez Age: 30 yrs Sex: Female : 1990 Arrival Date: 12/29/2020 Time: 07:27 Bed Treatment Private MD: ED Physician Juan Sotelo HPI: 12/29 07:47 This 30 yrs old Female presents to ER via Ambulatory with complaints of Low rn Back Pain. 07:47 The patient presents with pain that is acute. The symptoms are located in the low back. rn The pain does not radiate. Onset: The symptoms/episode began/occurred yesterday. Modifying factors: The patient symptoms are alleviated by remaining still, the patient symptoms are aggravated by any movement, bending, movement. Severity of symptoms: At their worst the symptoms were moderate, in the emergency department the symptoms have improved. The patient has experienced similar episodes in the past. The patient has been recently seen by a physician:. 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 No weakness/numbness/tingling/bowel or bladder issues. Improved today. Saw a doctor who prescribed motrin and muscle relaxer, doesn't like muscle relaxer, and feeling better, but couldn't afford back specialist f/u so came here. . 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 - Social history:: Smoking status: Patient reports the use of cigarette tobacco products, denies chronic smoking, but will smoke occasionally. - Family history:: not pertinent. - Hospitalizations: : No recent hospitalization is reported. ROS: 07:47 Constitutional: Negative for fever, chills, and weight loss, Neck: Negative for injury, rn pain, and swelling, Cardiovascular: Negative for chest pain, palpitations, and edema, Respiratory: Negative for shortness of breath, cough, wheezing, and pleuritic chest pain, Abdomen/GI: Negative for abdominal pain, nausea, vomiting, diarrhea, and constipation, Back: + left lower back pain : Negative for injury, bleeding, discharge, and swelling, MS/Extremity: Negative for injury and deformity, Skin: Negative for injury, rash, and discoloration, Neuro: Negative for headache, weakness, numbness, tingling, and seizure. Exam: 07:47 Constitutional: This is a well developed, well nourished patient who is awake, alert, rn and in no acute distress. Back: No spinal tenderness. No costovertebral tenderness. Full range of motion. + mild tenderness left perilumbar region. No masses Skin: Warm, dry with normal turgor. Normal color with no rashes, no lesions, and no evidence of cellulitis. MS/ Extremity: Pulses equal, no cyanosis. Neurovascular intact. Full, normal range of motion. Equal circumference. Neuro: Awake and alert, GCS 15, oriented to person, place, time, and situation. Cranial nerves II-XII grossly intact. Motor strength 5/5 in all extremities. Sensory grossly intact. Cerebellar exam normal. Normal gait. Vital Signs: 07:35 Weight 115.67 kg; Height 5 ft. 6 in. (167.64 cm); Pain 9/10; sv 07:47 BP 134 / 86; Pulse 76; Resp 18; Temp 98.1(TE); Pulse Ox 100% on R/A; Weight 115.6 kg; ld1 Height 5 ft. 5 in. (165.10 cm); Pain 7/10; 07:47 Body Mass Index 42.41 (115.60 kg, 165.10 cm) ld1 MDM: 07:31 Patient medically screened. rn 07:47 Differential diagnosis: arthritis, strain, sciatica, Herniated disc. Data reviewed: rn vital signs, nurses notes, and as a result, I will discharge patient. Counseling: I had a detailed discussion with the patient and/or guardian regarding: the historical points, exam findings, and any diagnostic results supporting the discharge/admit diagnosis, the need for outpatient follow up, to return to the emergency department if symptoms worsen or persist or if there are any questions or concerns that arise at home. Special discussion: I discussed with the patient/guardian in detail that at this point there is no indication for admission to the hospital. It is understood, however, that if the symptoms persist or worsen the patient needs to return immediately for re-evaluation. 07:47 Special discussion: Further emergent ED testing is not indicated at this point in time. rn I discussed with the patient/guardian in detail the need to arrange with the PCP or specialist further outpatient testing, MRI. Administered Medications: No medications were administered Disposition: 12/29/20 07:50 Discharged to Home. Impression: Muscle spasm of back. - Condition is Stable. - Discharge Instructions: Muscle Cramps and Spasms, Back Injury Prevention, [id number], Back Exercises. - Medication Reconciliation Form, Thank You Letter, Antibiotic Education, Prescription Opioid Use form. - Follow up: Private Physician; When: As needed; Reason: Recheck today's complaints, Re-evaluation by your physician. - Problem is new. - Symptoms have improved. Signatures: Flor Cuevas RN RN sv Nieto, Roman, MD MD rn Dibbern, Lauren, RN RN ld1 Corrections: (The following items were deleted from the chart) 07:54 07:50 12/29/2020 07:50 Discharged to Home. Impression: Muscle spasm of back. Condition ld1 is Stable. Forms are Medication Reconciliation Form, Thank You Letter, Antibiotic Education, Prescription Opioid Use. Follow up: Private Physician; When: As needed; Reason: Recheck today's complaints, Re-evaluation by your physician. Problem is new. Symptoms have improved. rn
--- NOTE | 2020-12-29 07:51 | ER ---
Nurse's Notes [facility] Name: Summer Perez Age: 30 yrs Sex: Female : 1990 Arrival Date: 12/29/2020 Time: 07:27 Bed Treatment Private MD: Diagnosis: Muscle spasm of back Presentation: 12/29 07:35 Chief complaint: Patient states: left lower back pain after bending down wrong sv yesterday and got "stuck" in a position and has been having pain since. Coronavirus screen: Client denies travel out of the [place] in the last 14 days. At this time, the client does not indicate any symptoms associated with coronavirus-19. Ebola Screen: No symptoms or risks identified at this time. Risk Assessment: Do you want to hurt yourself or someone else? Patient reports no desire to harm self or others. Onset of symptoms was December 28, 2020. 07:35 Method Of Arrival: Ambulatory sv 07:35 Acuity: SERAFIN 4 sv 07:52 Initial Sepsis Screen: Does the patient meet any 2 criteria? No. Patient's initial ld1 sepsis screen is negative. Does the patient have a suspected source of infection? No. Patient's initial sepsis screen is negative. 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 - Social history:: Smoking status: Patient reports the use of cigarette tobacco products, denies chronic smoking, but will smoke occasionally. - Family history:: not pertinent. - Hospitalizations: : No recent hospitalization is reported. Screenin:47 Abuse screen: Denies threats or abuse. Denies injuries from another. Nutritional ld1 screening: No deficits noted. Tuberculosis screening: No symptoms or risk factors identified. Fall Risk None identified. Assessment: 07:47 General: Appears in no apparent distress. uncomfortable, Behavior is calm, cooperative, ld1 appropriate for age. Pain: Complains of pain in left low back, left mid back, right mid back and right low back Pain currently is 7 out of 10 on a pain scale. Quality of pain is described as throbbing, Pain began 1 day ago. Is continuous. Neuro: Level of Consciousness is awake, alert, obeys commands, Oriented to person, place, time, situation, Appropriate for age. Cardiovascular: Capillary refill < 3 seconds Patient's skin is warm and dry. Respiratory: Airway is patent Respiratory effort is even, unlabored, Respiratory pattern is regular, symmetrical. GI: Abdomen is flat, non-distended. : No signs and/or symptoms were reported regarding the genitourinary system. EENT: No signs and/or symptoms were reported regarding the EENT system. Derm: No signs and/or symptoms reported regarding the dermatologic system. Musculoskeletal: Reports pain in back since 12/28/2020. Vital Signs: 07:35 Weight 115.67 kg; Height 5 ft. 6 in. (167.64 cm); Pain 9/10; sv 07:47 BP 134 / 86; Pulse 76; Resp 18; Temp 98.1(TE); Pulse Ox 100% on R/A; Weight 115.6 kg; ld1 Height 5 ft. 5 in. (165.10 cm); Pain 7/10; 07:47 Body Mass Index 42.41 (115.60 kg, 165.10 cm) ld1 ED Course: 07:27 Patient arrived in ED. am2 07:31 Juan Sotelo MD is Attending Physician. rn 07:36 Triage completed. sv 07:37 Arm band placed on. sv 07:43 Jaimee Luther, TONY is Primary Nurse. ld1 07:47 Patient has correct armband on for positive identification. Call light in reach. Pulse ld1 ox on. NIBP on. Door closed. Noise minimized. 07:47 No provider procedures requiring assistance completed. Patient did not have IV access ld1 during this emergency room visit. Administered Medications: No medications were administered Outcome: 07:50 Discharge ordered by . rn 07:52 Discharged to home ld1 07:52 Condition: stable 07:52 Discharge instructions given to patient, Instructed on discharge instructions, follow up and referral plans. Demonstrated understanding of instructions, follow-up care. 07:54 Patient left the ED. ld1 Signatures: Flor Cuevas RN RN Juan Sotelo MD MD rn Moreno, Amanda am2 Jaimee Luther RN RN ld1
[2020-12-29 08:05] VITALS: BP 134/86; TEMP 98.1; O2SAT 100
== END 2020-12-29 07:54 | disposition home or self-care (01) ==
LOC: ER 07:25
DX: M62.830 Muscle spasm of back (principal); F17.210 Nicotine dependence, cigarettes, uncomplicated
CPT/HCPCS: 99283

== ENCOUNTER 2023-01-08 11:07 | Emergency (ER) | payer OTHER ==
--- OUTSIDE RECORDS SUMMARY | 2023-01-08 11:11 | XMS REPORT | Continuity of Care Document ---
:1990 Author Organization [facility] t Address [address] [place] [address] Care Team Providers Name Role Phone Sheila Attending Clinician Unavailable Sheila Admitting Clinician Unavailable Payers Payer Name Policy Type Policy Number Effective Date Expiration Date S nereyda [place]: [employer] - [id number] TM[employer] - TRADITIONAL Problems This patient has no known problems. Allergies, Adverse Reactions, Alerts This patient has no known allergies or adverse reactions. 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 [facility] Index) [facility] Outreach Program BP Systolic 2020-04-23 00:00:00 138 mm[Hg] [place] [facility] Body Weight 2020-04-23 00:00:00 264.8 [lb_av] [place] [facility] Procedures Procedure Date / Time Performing Clinician Source Performed Bilateral Tubal Ligation [place] [facility] Appendectomy [facility] Plan of Care Planned Activity Planned Date Details Comments Source Diagnostic Test 2020-04-23 CMP, serum or [place] Pending 00:00:00 plasma [code = Health Outrea ch CMP, serum or Program plasma] Diagnostic Test 2020-04-23 CBC w/ auto diff [place] [facility] Pending 00:00:00 [code = CBC w/ Health Outrea ch auto diff] Program Diagnostic Test 2020-04-23 TSH, [place] [facility] Pending 00:00:00 ultra-sensitive, Health Outr each serum [code = TSH, Program ultra-sensitive, serum] Diagnostic Test 2020-04-23 lipase, serum or [place] [facility] Pending 00:00:00 plasma [code = Health Outrea ch lipase, serum or Program plasma] Encounters Start End Encounter Admission Attending Care Care Encounter Source Date/Time Date/Time Type Type Clinicians Facility Department ID 2022-11-08 2022-11-08 Outpatient SFA SFA [id number] [place] 14:36:20 14:36:20 [id number] [facility] 2022-10-31 2022-10-31 Outpatient SFA SFA [id number] [place] 10:04:54 10:04:54 [id number] [facility] [place] 2022-05-20 2022-05-20 Outpatient SFA SFA [id number] [place] 10:29:10 10:29:10 1007 [place] 2022-05-17 2022-05-17 Outpatient SFA SFA [id number] [place] 16:52:20 16:52:20 1004 [place] 2020-04-24 2020-04-24 Outpatient [facility] 110 [place] 03:42:00 03:42:00 [place] [id number] [facility] 2020-04-23 2020-04-23 Outpatient [facility]Ro [facility] 110 [place] 03:21:00 03:21:00 bin [id number] [facility] 2020-04-23 2020-04-23 Carlitos José [facility] [place] - [id number] [place] 00:00:00 00:00:00 Samson Rocha MD: [id number] [facility] Ep[facility] [address] [place] [address] [facility] [address] [facility] Program [phone] , Ph. 2020-04-21 2020-04-21 Outpatient [facility]Ro [facility] 110 [id number] [place] 07:59:00 07:59:00 bin [id number] [facility] 2020-04-16 2020-04-16 Outpatient [facility]Ro [facility] 110 [id number] [place] 10:29:00 10:29:00 bin [id number] [facility] Program 2020-04-13 2020-04-13 Outpatient [facility] 110 [id number] [place] 09:35:00 09:35:00 bin [id number] [facility] Results This patient has no known results.
[2023-01-08] MEDS ORDERED: KETOROLAC 30 MG/ML INJ ONE (11:49)
[2023-01-08] MEDS ORDERED: DIAZEPAM 5 MG TABLET ONE (11:49)
--- NOTE | 2023-01-08 11:49 | RAD REPORT ---
EXAM DESCRIPTION: CT - C Spine Wo Con - 01/08/2023 11:39 am CLINICAL HISTORY: neck pain COMPARISON: Neck Angio dated 11/30/2020 TECHNIQUE: CT Scan was obtained of the cervical spine without contrast. Reformats were provided in t he sagittal and coronal plane. FINDINGS: No acute fracture of the cervical spine. No traumatic malalignment. No prevertebral edema. No significant focal degenerative changes. No suspicious thyroid nodules or lymphadenopathy. The doreen g apices are clear. IMPRESSION: No fracture or traumatic malalignment of the cervical spine.
--- NOTE | 2023-01-08 11:50 | RAD REPORT ---
EXAM DESCRIPTION: RAD - Shoulder Right 2 View - 01/08/2023 11:44 am CLINICAL HISTORY: shoulder pain COMPARISON: <Comparisons> FINDINGS/IMPRESSION: No acute fracture. No malalignment. No significant focal degenerative changes.
--- NOTE | 2023-01-08 12:14 | ER ---
Nurse's Notes [facility] Name: Summer Perez Age: 32 yrs Sex: Female : 1990 Arrival Date: 01/08/2023 Time: 11:07 Bed 11 Private MD: Ree Kate Diagnosis: Radiculopathy, cervical region Presentation: 01/08 11:20 Chief complaint: Patient states: she has been having neck pain that radiates in to both ap3 arms intermittently for approx one month now. Coronavirus screen: At this time, the client does not indicate any symptoms associated with coronavirus-19. Ebola Screen: No symptoms or risks identified at this time. Initial Sepsis Screen: Does the patient meet any 2 criteria? No. Patient's initial sepsis screen is negative. Does the patient have a suspected source of infection? No. Patient's initial sepsis screen is negative. Risk Assessment: Do you want to hurt yourself or someone else? Patient reports no desire to harm self or others. Onset of symptoms was November 2022. 11:20 Method Of Arrival: Ambulatory ap3 11:20 Acuity: SERAFIN 4 ap3 Triage Assessment: 11:22 General: Appears in no apparent distress. Behavior is calm, cooperative, appropriate ap3 for age. Pain: Complains of pain in neck Pain radiates to right arm and left arm Pain began approx one month ago Is intermittent. Neuro: Level of Consciousness is awake, alert, obeys commands, Oriented to person, place, time. Cardiovascular: Patient's skin is warm and dry. Respiratory: Airway is patent Respiratory effort is even, unlabored, Respiratory pattern is regular, symmetrical. Musculoskeletal: Reports pain in right arm, left arm and neck since approx one month ago. 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 - Social history:: Smoking status: Patient reports the use of cigarette tobacco products, denies chronic smoking, but will smoke occasionally. Screenin:24 [facility] ED Fall Risk Assessment (Adult) History of falling in the last 3 months, ap3 including since admission No falls in past 3 months (0 pts). Abuse screen: Denies threats or abuse. Nutritional screening: No deficits noted. Tuberculosis screening: No symptoms or risk factors identified. Assessment: 11:52 Reassessment: Patient and/or family updated on plan of care and expected duration. Pain ap3 level reassessed. Patient is alert, oriented x 3, equal unlabored respirations, skin warm/dry/pink. Neuro: Level of Consciousness is awake, alert, obeys commands, Oriented to person, place, time, situation. Vital Signs: 11:20 BP 141 / 101; Pulse 89; Resp 17; Temp 98.9; Pulse Ox 100% ; Weight 114.31 kg; Height 5 ap3 ft. 4 in. ; Pain 9/10; 11:20 Body Mass Index 43.26 (114.31 kg, 162.56 cm) ap3 11:20 Pain Scale: Adult ap3 ED Course: 11:09 Patient arrived in ED. am2 11:10 Ree Kate is Private Physician. am2 11:11 Aj Moncada PA is [facility] 11:11 Clayton Montejo MD is Attending Physician. [facility] 11:20 Mariana Dinero, TONY is Primary Nurse. ap3 11:22 Triage completed. ap3 11:24 Arm band placed on right wrist. ap3 11:24 Patient has correct armband on for positive identification. Bed in low position. Call ap3 light in reach. Side rails up X 1. Pulse ox on. NIBP on. Door closed. Noise minimized. 11:41 CT C Spine In Process Unspecified. EDMS 11:46 Shoulder Right (2 View) XRAY In Process Unspecified. EDMS 12:36 No provider procedures requiring assistance completed. Patient did not have IV access ap3 during this emergency room visit. Administered Medications: 11:51 Drug: Ketorolac IM 30 mg Route: IM; Site: right deltoid; ap3 12:35 Follow up: Response: No adverse reaction; Pain is decreased ap3 11:51 Drug: Diazepam PO 5 mg Route: PO; ap3 12:35 Follow up: Response: No adverse reaction; Pain is decreased ap3 Medication: 11:24 VIS not applicable for this client. ap3 Outcome: 12:14 Discharge ordered by . [facility] 12:36 Discharged to home ambulatory, with family. ap3 12:36 Condition: good 12:36 Discharge instructions given to patient, Instructed on discharge instructions, follow up and referral plans. medication usage, Demonstrated understanding of instructions, follow-up care, medications, Prescriptions given X 3. 12:36 Patient left the ED. ap3 Signatures: Dispatcher [employer] EDMS Aj Moncada PA PA jmm Moreno, Amanda am2 Prokisch, Amanda, RN RN ap3
--- NOTE | 2023-01-08 12:14 | EDPHYS ---
Physician Documentation [facility] Name: Summer Perez Age: 32 yrs Sex: Female : 1990 Arrival Date: 01/08/2023 Time: 11:07 Bed 11 Private MD: Ree Kate ED Physician Clayton Montejo HPI: 01/08 11:19 This 32 yrs old Female presents to ER via Ambulatory with complaints of Neck jmm Pain, <24hrs Old, Shoulder Pain, Back Pain. 11:19 The patient or guardian complains of pain. This is a 32 year old female with no chronic jmm medical conditions that presents to the ED with complaints of nek pain, right sided shoulder pain which radiates down the right arm. Symptoms initially began about a month ago. Patient denies injury. Denies fever. . 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 - Social history:: Smoking status: Patient reports the use of cigarette tobacco products, denies chronic smoking, but will smoke occasionally. ROS: 11:19 Constitutional: Negative for fever, chills, and weight loss. jmm 11:19 Neck: Positive for pain with movement. 11:19 All other systems are negative. Exam: 11:19 Constitutional: This is a well developed, well nourished patient who is awake, alert, jmm and in no acute distress. Head/Face: atraumatic. Eyes: EOMI, no conjunctival erythema appreciated ENT: Moist Mucus Membranes Chest/axilla: Normal chest wall appearance and motion. Cardiovascular: Regular rate and rhythm. No edema appreciated Respiratory: Normal respirations, no respiratory distress appreciated 11:19 Back: Normal ROM Skin: General appearance color normal 11:19 Neck: right sided paraspinal pain on palpation, FROM appreciated. 11:19 Musculoskeletal/extremity: ROM: intact in all extremities, full right hogshead filler strength, full radial pulse, pain on abduction of right arm, NVI. 11:19 Skin: Appearance: Color: normal in color. 11:19 Neuro: Orientation: is normal, Mentation: is normal, Memory: is normal. 11:19 Psych: Behavior/mood is pleasant, cooperative. Vital Signs: 11:20 BP 141 / 101; Pulse 89; Resp 17; Temp 98.9; Pulse Ox 100% ; Weight 114.31 kg; Height 5 ap3 ft. 4 in. ; Pain 9/10; 11:20 Body Mass Index 43.26 (114.31 kg, 162.56 cm) ap3 11:20 Pain Scale: Adult ap3 MDM: 11:19 Patient medically screened. [facility] 12:12 Differential diagnosis: Cervical Raiculopathy cervical strain, muscle spasm. Data sabine reviewed: vital signs, nurses notes, radiologic studies, CT scan, plain films. I considered the following discharge prescriptions or medication management in the emergency department Medications were administered in the Emergency Department. See MAR. Independent interpretation of the following test(s) in the Emergency Department X-Ray: My interpretation is no fracture appreciated. Counseling: I had a detailed discussion with the patient and/or guardian regarding: the historical points, exam findings, and any diagnostic results supporting the discharge/admit diagnosis, radiology results, the need for outpatient follow up, to return to the emergency department if symptoms worsen or persist or if there are any questions or concerns that arise at home. 01/08 11:25 Order name: Shoulder Right (2 View) XRAY; Complete Time: 11:54 [facility] 01/08 11:25 Order name: CT C Spine; Complete Time: 11:54 [facility] Administered Medications: 11:51 Drug: Ketorolac IM 30 mg Route: IM; Site: right deltoid; ap3 12:35 Follow up: Response: No adverse reaction; Pain is decreased ap3 11:51 Drug: Diazepam PO 5 mg Route: PO; ap3 12:35 Follow up: Response: No adverse reaction; Pain is decreased ap3 Disposition Summary: 01/08/23 12:14 Discharge Ordered Location: Home [facility] Condition: Stable harshad Diagnosis - Radiculopathy, cervical region [facility] Followup: sabine - With: Private Physician - When: 2 - 3 days - Reason: Recheck today's complaints, Continuance of care, Re-evaluation by your physician Discharge Instructions: - Discharge Summary Sheet sabine - Cervical Radiculopathy [facility] Forms: - Medication Reconciliation Form harshad - Thank You Letter jmm - Antibiotic Education jmm - Prescription Opioid Use [facility] Prescriptions: - Prednisone 20 mg Oral Tablet - take 3 tablets by ORAL route once daily for 5 days; 15 tablet; Refills: 0, [facility] Product Selection Permitted - Zanaflex 4 mg Oral Tablet - take 1 tablet by ORAL route every 8 hours As needed; 20 tablet; Refills: 0, [facility] Product Selection Permitted - Diclofenac Sodium 75 mg Oral Tablet Sustained Release - take 1 tablet by ORAL route 2 times per day; 30 tablet; Refills: 0, Product [facility] Selection Permitted Signatures: Dispatcher [employer] Aj Enrique PA PA jmm Prokisch, Amanda, RN RN ap3
[2023-01-08 12:49] VITALS: BP 141/101; TEMP 98.9; O2SAT 100
== END 2023-01-08 12:36 | disposition home or self-care (01) ==
LOC: ER 11:07
DX: M54.12 Radiculopathy, cervical region (principal); F17.210 Nicotine dependence, cigarettes, uncomplicated
CPT/HCPCS: 72125; 96372; 99284

== ENCOUNTER 2024-08-17 19:56 | Emergency (ER) | payer OTHER ==
--- OUTSIDE RECORDS SUMMARY | 2024-08-17 20:00 | XMS REPORT | Continuity of Care Document ---
Author Name Unknown Address [address] [facility] [place] [address] [facility] thconnect Address [address] [facility] [address] [place] [address] Care Team Providers Care Terminologist Name Role Phone Sheila Attending Clinician Unavailable Sheila Admitting Clinician Unavailable Payers Payer Name Policy Type Policy Number Effective Date Expirati on Date Source [place] [facility] [id number] Social History Smoking Status Start Date Stop Date Source Heavy Tobacco Smoker [facility] Medications Ordered Medication Name Filled Medication Name Start Date Stop Date Current Medication? Ordering Clinician Indication Dosage Frequency Signature (SIG) Comments Components Source dicyclomine 20 mg tablet Take 1 tablet 4 times a day by oral route as needed. dicyclomine 20 mg tablet Take 1 tablet 4 times a day by oral route as needed. No 1 QID dicyclomin e 20 mg tablet Take 1 tablet 4 times a day by oral route as needed. [facility] Vital Signs Vital Name Observation Time Observation Value Comments S ource BP Diastolic 2020-04-23 00:00:00 78 mm[Hg] [place] [facility] Height 2020-04-23 00:00:00 66 [in_i] Sabiha orda [facility] BMI (Body Mass Index) 2020-04-23 00:00:00 42.7 kg/m2 [facility] BP Systolic 2020-04-23 00:00:00 138 mm[Hg] Padilla sa[place] [facility] Body Weight 2020-04-23 00:00:00 264.8 [lb_av] M [facility] Procedures Procedure Date / Time Performed Performing Clinician Source Bilateral Tubal Ligation [facility] Appendectomy [facility] Plan of Care Planned Activity Planned Date Details Comments Source Diagnostic Test Pending 2020-04-23 00:00:00 CMP, serum or plasma [code = CMP, serum or plasma] [facility] Diagnostic Test Pending 2020-04-23 00:00:00 CBC w/ auto diff [code = CBC w/ auto diff] [facility] Diagnostic Test Pending 2020-04-23 00:00:00 TSH, ultra-sensitive, serum [code = TSH, ultra-sensitive, serum] [facility] Diagnostic Test Pending 2020-04-23 00:00:00 lipase, serum or plasma [code = lipase, serum or plasma] [facility] Encounters Start Date/Time End Date/Time Encounter Type Admission Type Attending [facility] Care Facility Care Department Encounter ID Source 2024-08-13 10:09:01 2024-08-13 10:09:01 Outpatient [facility] [id number] Jovanni Vaca 2024-08-12 09:24:21 2024-08-12 09:24:21 Outpatient [facility] [id number] Jovanni Vaca 2024-07-30 10:02:56 2024-07-30 10:02:56 Outpatient SFA SFA [id number] Jovanni Finn Lio 2024-07-23 10:04:46 2024-07-23 10:04:46 Outpatient SFA SFA [id number] Jovanni Vaca 2024-07-16 10:04:42 2024-07-16 10:04:42 Outpatient SFA SFA [id number] Jovanni Finn Lio 2024-07-09 10:04:27 2024-07-09 10:04:27 Outpatient S[facility] SFA [id number] Jovanni Vaca 2024-07-02 10:00:21 2024-07-02 10:00:21 Outpatient SFA SFA [id number] Jovanni Finn Lio 2024-06-28 10:48:19 2024-06-28 10:48:19 Outpatient SFA SFA [id number] Jovanni Vaca 2024-06-11 13:36:23 2024-06-11 13:36:23 Outpatient SFA SFA [id number] Jovanni Vaca 2024-05-30 15:45:00 2024-05-30 15:45:00 Outpatient SFA SFA [id number] Jovanni Vaca 2024-03-19 13:54:44 2024-03-19 13:54:44 Outpatient SFA SFA [id number] Jovanni Vaca 2023-11-03 13:18:24 2023-11-03 13:18:24 Outpatient SFA SFA [id number] Jovanni Vaca 2023-02-28 08:45:57 2023-02-28 08:45:57 Outpatient SFA SFA [id number] Jovanni Vaca 2023-02-20 13:31:32 2023-02-20 13:31:32 Outpatient SFA SFA [id number] Jovanni Vaca 2022-11-08 14:36:20 2022-11-08 14:36:20 Outpatient SFA SFA [id number] Jovanni Vaca 2022-10-31 10:04:54 2022-10-31 10:04:54 Outpatient SFA SFA [id number] Jovanni Vaca 2022-05-20 10:29:10 2022-05-20 10:29:10 Outpatient SFA SFA [id number] Jovanni Finn Lio 2022-05-17 16:52:20 2022-05-17 16:52:20 Outpatient SFA SFA [id number] Jovanni Finn Lio 2020-04-24 03:42:00 2020-04-24 03:42:00 Outpatient [facility] 11 [place] [facility] 2020-04-23 03:21:00 2020-04-23 03:21:00 Outpatient [facility]Ro bin [facility] 10 [place] [facility] 2020-04-23 00:00:00 2020-04-23 00:00:00 Carlitos Rocha MD: [id number] [facility], [address], [place] [address] , Ph. [facility] [id number] [place] [facility] 2020-04-21 07:59:00 2020-04-21 07:59:00 Outpatient [facility]Ro bin [facility] [id number] [place] [facility] 2020-04-16 10:29:00 2020-04-16 10:29:00 Outpatient [facility]Ro bin [facility] [id number] [place] [facility] 2020-04-13 09:35:00 2020-04-13 09:35:00 Outpatient Ferguson[facility]Ro bin [facility] [id number] [place] [facility]
[2024-08-17] MEDS ORDERED: CYCLOBENZAPRINE 10 MG TAB ONE (20:34)
[2024-08-17] MEDS ORDERED: KETOROLAC 30 MG/ML INJ ONE (20:34)
--- NOTE | 2024-08-17 20:52 | EDPHYS ---
Physician Documentation [facility] Name: Summer Perez Age: 34 yrs Sex: Female : 1990 Arrival Date: 08/17/2024 Time: 19:56 Bed 20 Private MD: ED Physician Ross Bermudez HPI: 08/17 20:26 This 34 yrs old Female presents to ER via Ambulatory with complaints of Leg jh7 Pain, Back Pain, Pain goes down left leg. 20:26 34-year-old female with no significant past medical history presents to the ER for left jh7 lower back/gluteal pain intermittently for the past 2 to 3 months. Her PCP told her that she had muscle spasms and gave her a Lidoderm patch. She reports that her symptoms improved but yesterday she developed the left gluteal pain once again and that it radiates down the back of her leg. Denies any injury, loss of bowel or bladder, or any neurological symptoms.. SOLE LAYER HAND: 20:27 Not cp4 Historical: - Allergies: 20:27 No Known Allergies; cp4 - PMHx: 20:27 ruptured appendix; cp4 - Immunization history:: Adult Immunizations up to date. - Infectious Disease History:: Denies. - Social history:: Smoking status: Patient reports the use of cigarette tobacco products, denies chronic smoking, but will smoke occasionally. ROS: 20:26 Constitutional: Per HPI jh7 Exam: 20:26 Constitutional: This is a well developed, well nourished patient who is awake, alert, jh7 and in no acute distress. Neck: Trachea midline, no thyromegaly or masses palpated, and no cervical lymphadenopathy. Supple, full range of motion without nuchal rigidity, or vertebral point tenderness. No Meningismus. Cardiovascular: Regular rate and rhythm with a normal S1 and S2. No gallops, murmurs, or rubs. Normal PMI, no JVD. No pulse deficits. Respiratory: Lungs have equal breath sounds bilaterally, clear to auscultation and percussion. No rales, rhonchi or wheezes noted. No increased work of breathing, no retractions or nasal flaring. Abdomen/GI: Soft, non-tender, with normal bowel sounds. No distension or tympany. No guarding or rebound. No evidence of tenderness throughout. 20:26 Neuro: Awake and alert, GCS 15, oriented to person, place, time, and situation. Cranial nerves II-XII grossly intact. Motor strength 5/5 in all extremities. Sensory grossly intact. Cerebellar exam normal. Normal gait. 20:26 Back: ROM is painful, Left gluteal pain worsening with movement of the left leg.. CVA tenderness, is absent, muscle spasm, is appreciated in the Left leg, 20:26 Musculoskeletal/extremity: ROM: limited active range of motion due to pain, in the left leg/glute, Vital Signs: 20:26 BP 142 / 84; Pulse 85; Resp 18; Temp 98.2; Pulse Ox 100% ; cp4 21:24 BP 124 / 70; Pulse 81; Resp 18; Pulse Ox 98% ; cp4 MDM: 20:02 Medical Screening Exam initiated [facility] 20:45 Differential diagnosis: Sciatica, lumbar radiculopathy, glute strain. Data reviewed: [facility] vital signs, nurses notes. I considered the following discharge prescriptions or medication management in the emergency department Medications were administered in the Emergency Department. See MAR. Counseling: I had a detailed discussion with the patient and/or guardian regarding the historical points, exam findings, and any diagnostic results supporting the discharge/admit diagnosis, to return to the emergency department if symptoms worsen or persist or if there are any questions or concerns that arise at home. Response to treatment: the patient's symptoms have markedly improved after treatment. Administered Medications: 20:40 Drug: Ketorolac IM 60 mg IM once Route: IM; Site: left ventrogluteal; cp4 21:24 Follow up: Response: No adverse reaction; Pain is decreased cp4 20:40 Drug: Cyclobenzaprine PO 10 mg PO once Route: PO; cp4 21:24 Follow up: Response: No adverse reaction; Pain is decreased cp4 Disposition: 08/18 00:31 Co-signature as Attending Physician, Ross Bermudez MD I agree with the assessment sp4 and plan of care. I reviewed the patient's care provided by the Advanced Practice Provider and agree with the diagnosis and treatment plan. Disposition Summary: 08/17/24 20:51 Discharge Ordered Notes: Location: Home [facility] Problem: new [facility] Symptoms: have improved [facility] Condition: Stable [facility] Diagnosis - Sciatica, left side jh7 Followup: [facility] - With: Private Physician - When: 2 - 3 days - Reason: Recheck today's complaints Discharge Instructions: - Discharge Summary Sheet [facility] - Sciatica [facility] Forms: - Medication Reconciliation Form [facility] - Patient Portal Instructions [facility] - Leadership Thank You Letter [facility] Prescriptions: - Zanaflex 4 mg Oral Tablet - take 1 tablet ORAL route every 8 hours As needed; 20 tablet; Refills: 0, [facility] Product Selection Permitted - Medrol (Rob) 4 mg Oral Tablets, Dose Pack - take 1 tablet ORAL route as directed - follow package instructions; 1 packet; [facility] Refills: 0, Product Selection Permitted Signatures: Kylah Mendoza, EYEGLASS FITTER EYEGLASS FITTER [facility] Ross Bermudez MD MD sp4 Roslyn Lemus cp4
--- NOTE | 2024-08-17 20:52 | ER ---
Nurse's Notes [facility] Name: Summer Perez Age: 34 yrs Sex: Female : 1990 Arrival Date: 08/17/2024 Time: 19:56 Bed 20 Private MD: Diagnosis: Sciatica, left side Presentation: 08/17 20:26 Chief complaint: Patient states: left sided back pain that travels down the left leg. cp4 Coronavirus screen: Client denies travel out of the [place] in the last 14 days. At this time, the client does not indicate any symptoms associated with coronavirus-19. Ebola Screen: Patient negative for fever greater than or equal to 101.5 degrees Fahrenheit, and additional compatible Ebola Virus Disease symptoms Patient denies exposure to infectious person. Patient denies travel to an Ebola-affected area in the 21 days before illness onset. No symptoms or risks identified at this time. Initial Sepsis Screen: Does the patient meet any 2 criteria? No. Patient's initial sepsis screen is negative. Does the patient have a suspected source of infection? No. Patient's initial sepsis screen is negative. Risk Assessment: Do you want to hurt yourself or someone else? Patient reports no desire to harm self or others. Onset of symptoms is unknown. 20:26 Method Of Arrival: Ambulatory cp4 20:26 Acuity: SERAFIN 3 cp4 Triage Assessment: 20:27 General: Appears in no apparent distress. uncomfortable, Behavior is calm, cooperative, cp4 appropriate for age. Pain: Complains of pain in back and left leg Pain radiates to left leg Pain currently is 9 out of 10 on a pain scale. EENT: No signs and/or symptoms were reported regarding the EENT system. Neuro: Level of Consciousness is awake, alert, obeys commands, Oriented to person, place, time, situation. Cardiovascular: Patient's skin is warm and dry. Respiratory: Airway is patent Respiratory effort is even, unlabored. GI: No signs and/or symptoms were reported involving the gastrointestinal system. : No signs and/or symptoms were reported regarding the genitourinary system. Derm: No signs and/or symptoms reported regarding the dermatologic system. Musculoskeletal: Circulation, motion, and sensation intact. Capillary refill < 3 seconds, Range of motion: intact in all extremities, Reports pain in back and left leg. 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 - Infectious Disease History:: Denies. - Social history:: Smoking status: Patient reports the use of cigarette tobacco products, denies chronic smoking, but will smoke occasionally. Screenin:29 [facility] ED Fall Risk Assessment (Adult) History of falling in the last 3 months, cp4 including since admission No falls in past 3 months (0 pts) Confusion or Disorientation No (0 pts) Intoxicated or Sedated No (0 pts) Impaired Gait No (0 pts) Mobility Assist Device Used No (0 pt) Altered Elimination No (0 pt) Score/Fall Risk Level 0 - 2 = Low Risk Oriented to surroundings, Maintained a safe environment, Assessed \T\ reinforced patient's understanding of fall precautions, Hourly rounding (assess needs \T\ fall precautionary measures) done. Abuse screen: Denies threats or abuse. Nutritional screening: No deficits noted. Tuberculosis screening: No symptoms or risk factors identified. Assessment: 20:29 Reassessment: No changes from previously documented assessment. Neuro: Level of cp4 Consciousness is awake, alert, obeys commands, Oriented to person, place, time, situation, Laborer/Grade Check are equal bilaterally Moves all extremities. Gait is steady, Speech is normal, Facial symmetry appears normal, Pupils are PERRLA, Intact. Vital Signs: 20:26 BP 142 / 84; Pulse 85; Resp 18; Temp 98.2; Pulse Ox 100% ; cp4 21:24 BP 124 / 70; Pulse 81; Resp 18; Pulse Ox 98% ; cp4 ED Course: 20:01 Patient arrived in ED. gm2 20:02 Kylah Mendoza FNP [facility]. jh7 20:02 Ross Bermudez MD is Attending Physician. jh7 20:13 Roslyn Lemus is Primary Nurse. cp4 20:27 Triage completed. cp4 20:27 Arm band placed on right wrist. Patient placed in waiting room. cp4 20:29 Bed in low position. Call light in reach. Side rails up X 1. cp4 20:29 No provider procedures requiring assistance completed. cp4 21:27 Provided Education on: sciatica. cp4 21:27 Patient did not have IV access during this emergency room visit. cp4 Administered Medications: 20:40 Drug: Ketorolac IM 60 mg IM once Route: IM; Site: left ventrogluteal; cp4 21:24 Follow up: Response: No adverse reaction; Pain is decreased cp4 20:40 Drug: Cyclobenzaprine PO 10 mg PO once Route: PO; cp4 21:24 Follow up: Response: No adverse reaction; Pain is decreased cp4 Medication: 20:29 VIS not applicable for this client. cp4 Outcome: 20:51 Discharge ordered by . [email or web address] 21:27 Discharged to home ambulatory, cp4 21:27 Condition: stable :27 Discharge instructions given to patient, Instructed on discharge instructions, follow up and referral plans. medication usage, Demonstrated understanding of instructions, follow-up care, medications, Prescriptions given X 2, 21:27 Patient left the ED. cp4 Signatures: Kylah Mendoza FNP FNP jh7 Roslyn Lemus cp4 Hellen Lujan 2
[2024-08-17 21:33] VITALS: TEMP 98.2
[2024-08-17 21:34] VITALS: BP 124/70; O2SAT 98
== END 2024-08-17 21:27 | disposition home or self-care (01) ==
LOC: ER 19:56
DX: M54.32 Sciatica, left side (principal)
CPT/HCPCS: 96372; 99284

== ENCOUNTER 2025-04-02 07:55 | Emergency (ER) | payer OTHER ==
--- OUTSIDE RECORDS SUMMARY | 2025-04-02 07:57 | XMS REPORT | Continuity of Care Document ---
Author Name Unknown Address [address] [facility] [address] [place] [address] [facility] [place] Address [address] [facility] [address] [place] [address] Care Team Providers Care Loom Stop Checker Name Role Phone Sheila Attending Clinician Unavailable Sheila Admitting Clinician Unavailable Payers Payer Name Policy Type Policy Number Effective Date Expirati on Date Source [place] [facility] [id number] Social History Smoking Status Start Date Stop Date Source Heavy Tobacco Smoker [facility] Medications Ordered Medication Name [...] a day by oral route as needed. [facility] Vital Signs Vital Name Observation Time Observation Value Comments S ource BP Diastolic 2020-04-23 00:00:00 78 mm[Hg] [place] [facility] Height 2020-04-23 00:00:00 66 [in_i] Sabiha orda [facility] BMI (Body Mass Index) 2020-04-23 00:00:00 42.7 kg/m2 [facility] BP Systolic 2020-04-23 00:00:00 138 mm[Hg] Padilla sapphire [facility] Body Weight 2020-04-23 00:00:00 264.8 [lb_av] [place] [facility] Procedures Procedure Date / Time Performed Performing Clinician Source B[facility] Append[facility] Plan of Care Planned Activity Planned Date Details Comments Source Diagnostic Test Pending 2020-04-23 00:00:00 CMP, serum or plasma [code = CMP, serum or plasma] [facility] Diagnostic Test Pending 2020-04-23 00:00:00 CBC w/ auto diff [code = CBC w/ auto diff] [facility] Diagnostic Test Pending 2020-04-23 00:00:00 TSH, ultra-sensitive, serum [code = TSH, ultra-sensitive, serum] [facility] Diagnostic Test Pending 2020-04-23 00:00:00 lipase, serum or plasma [code = lipase, serum or plasma] [facility] Encounters Start Date/Time End Date/Time Encounter Type Admission Type Attending [facility] Facility Care Department Encounter ID Source 2025-01-28 15:15:53 2025-01-28 15:15:53 Outpatient SFA SFA [id number] Jovanni Vaca 2024-11-21 13:05:52 2024-11-21 13:05:52 Outpatient SFA SFA [id number] Jovanni Vaca 2024-11-19 09:22:25 2024-11-19 09:22:25 Outpatient SFA SFA [id number] Jovanni Vaca 2024-11-13 14:12:58 2024-11-13 14:12:58 Outpatient SFA SFA [id number] Jovanni Vaca 2024-11-11 14:12:38 2024-11-11 14:12:38 Outpatient SFA SFA [id number] Jovanni Vaca 2024-10-19 10:19:15 2024-10-19 10:19:15 Outpatient SFA SFA [id number] Jovanni Vaca 2024-10-17 13:57:53 2024-10-17 13:57:53 Outpatient SFA SFA [id number] Jovanni Vaca 2024-10-14 17:17:50 2024-10-14 17:17:50 Outpatient SFA SFA [id number] Jovanni Vaca 2024-09-06 16:59:06 2024-09-06 16:59:06 Outpatient SFA SFA [id number] Jovanni Vaca 2024-08-27 10:06:47 2024-08-27 10:06:47 Outpatient SFA SFA [id number] Jovanni aVca 2024-08-22 09:01:03 2024-08-22 09:01:03 Outpatient SFA SFA [id number] Jovanni Vaca 2024-08-13 10:09:01 2024-08-13 10:09:01 Outpatient SFA SFA [id number] Jovanni Vaca 2024-08-12 09:24:21 2024-08-12 09:24:21 Outpatient SFA SFA [id number] Jovanni Vaca 2024-07-30 10:02:56 2024-07-30 10:02:56 Outpatient SFA SFA [id number] Jovanni Vaca 2024-07-23 10:04:46 2024-07-23 10:04:46 Outpatient SFA SFA [id number] Jovanni Vaca 2024-07-16 10:04:42 2024-07-16 10:04:42 Outpatient SFA SFA [id number] Jovanni Vaca 2024-07-09 10:04:27 2024-07-09 10:04:27 Outpatient SFA SFA [id number] Jovanni Vaca 2024-07-02 10:00:21 2024-07-02 10:00:21 Outpatient SFA SFA [id number] Jovanni Vaca 2024-06-28 10:48:19 2024-06-28 10:48:19 Outpatient SFA SFA [id number] Jovanni Vaca 2024-06-11 13:36:23 2024-06-11 13:36:23 Outpatient SFA SFA [id number] Jovanni Vaca 2024-05-30 15:45:00 2024-05-30 15:45:00 [...] 2022-10-31 10:04:54 2022-10-31 10:04:54 Outpatient SFA SFA [id number] Jovanni Vaca 2022-05-20 10:29:10 2022-05-20 10:29:10 Outpatient SFA SFA [id number] Jovanni Vaca 2022-05-17 16:52:20 2022-05-17 16:52:20 Outpatient SFA SFA [id number] Jovanni Vaca 2020-04-23 00:00:00 2020-04-23 00:00:00 Carlitos Rocha MD: [id number], [place] [address] , Ph. [facility] [id number] [place] [facility]
[2025-04-02] MEDS ORDERED: KETOROLAC 30 MG/ML INJ ONE (09:02)
--- NOTE | 2025-04-02 09:02 | RAD REPORT ---
EXAMINATION: C Spine Wo Con CLINICAL INDICATION: Female, 35 years old. PAIN TECHNIQUE: Axial CT images through the cervical spine were obtained without intravenous contrast. Sag ittal and coronal reformatted images were created from the data set. One or more of the following dose reduction techniques were used: Automated exposure control, adjustment of the mA and/or kV accor ding to patient size, and/or iterative reconstruction. Unless otherwise specified, incidental findings do not require dedicated imaging follow-up. [id number]. COMPARISON: 01/08/2023 FINDINGS: ALIGNMENT: Loss of the normal cervical lordosis. BONE: Vertebral body heights are maintained. No aggressive osseous lesions. DEGENERATIVE: No significant focal degenerative changes. SOFT TISSUE: No significant abnormalities in the soft tissue of the neck. The visualized lung apices are clear. IMPRESSION: No acute cervical spine abnormalities.
--- NOTE | 2025-04-02 09:59 | ER ---
Nurse's Notes [facility] Name: Summer Perez Age: 35 yrs Sex: Female : 1990 Arrival Date: 04/02/2025 Time: 07:55 Bed 13 Private MD: Diagnosis: Strain of muscle, fascia and tendon at neck level, initial encounter;Torticollis Presentation: 04/02 08:04 Chief complaint: Patient states: Right sided neck pain that radiates down right arm cm10 onset yesterday. Pt states that movement makes the pain worse. Pt rates pain a 10/10 and states that the pain is constant. Coronavirus screen: Client denies travel out of the [place] in the last 14 days. Ebola Screen: Patient denies travel to an Ebola-affected area in the 21 days before illness onset. Initial Sepsis Screen: Does the patient meet any 2 criteria? No. Patient's initial sepsis screen is negative. Does the patient have a suspected source of infection? No. Patient's initial sepsis screen is negative. Risk Assessment: Do you want to hurt yourself or someone else? Patient reports no desire to harm self or others. Onset of symptoms was April 01, 2025. 08:04 Method Of Arrival: Ambulatory cm10 08:04 Acuity: SERAFIN 4 cm10 Triage Assessment: 08:06 General: Appears uncomfortable, Behavior is calm, cooperative. Pain: Complains of pain cm10 in neck Pain radiates to right arm Pain currently is 10 out of 10 on a pain scale. Quality of pain is described as sharp, Pain began 1 day ago. Is continuous. Neuro: No deficits noted. Level of Consciousness is awake, alert, obeys commands, Oriented to person, place, time, situation, Appropriate for age. Respiratory: No deficits noted. Airway is patent Respiratory effort is even, unlabored, Respiratory pattern is regular, symmetrical. Musculoskeletal: Reports pain in neck since Yesterday. 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 - Infectious Disease History:: Denies. - Social history:: Smoking status: Patient denies any tobacco usage or history of. - Family history:: not pertinent. Screenin:15 [facility] ED Fall Risk Assessment (Adult) History of falling in the last 3 months, cm10 including since admission No falls in past 3 months (0 pts) Confusion or Disorientation No (0 pts) Intoxicated or Sedated No (0 pts) Impaired Gait No (0 pts) Mobility Assist Device Used No (0 pt) Altered Elimination No (0 pt) Score/Fall Risk Level 0 - 2 = Low Risk Oriented to surroundings, Maintained a safe environment, Hourly rounding (assess needs \T\ fall precautionary measures) done. Abuse screen: Denies threats or abuse. Denies injuries from another. Nutritional screening: No deficits noted. Tuberculosis screening: No symptoms or risk factors identified. Assessment: 09:19 Reassessment: Patient appears in no apparent distress at this time. Patient and/or cm10 family updated on plan of care and expected duration. Pain level reassessed. Patient is alert, oriented x 3, equal unlabored respirations, skin warm/dry/pink. 09:45 Reassessment: Patient appears in no apparent distress at this time. Patient and/or cm10 family updated on plan of care and expected duration. Pain level reassessed. Patient is alert, oriented x 3, equal unlabored respirations, skin warm/dry/pink. Patient states feeling better. Patient states symptoms have improved. Vital Signs: 08:04 BP 124 / 71; Pulse 83; Resp 18; Temp 98.1(O); Pulse Ox 100% on R/A; Weight 113.4 kg cm10 (R); Height 5 ft. 4 in. (R); Pain 10/10; 09:20 BP 118 / 73; Pulse 83; Resp 15; Pulse Ox 100% ; cm10 09:45 Pain 7/10; cm10 09:45 Pain 7/10; cm10 10:31 BP 107 / 84; Pulse 83; Resp 15; Pulse Ox 100% ; cm10 08:04 Body Mass Index 42.91 (113.40 kg, 162.56 cm) cm10 08:04 Pain Scale: Adult cm10 09:45 Pain Scale: Adult cm10 09:45 Pain Scale: Adult cm10 ED Course: 07:57 Patient arrived in ED. im 08:02 Clayton Montejo MD is Attending Physician. [facility] 08:04 Latrice Dan, RN is Primary Nurse. cm10 08:06 Triage completed. cm10 08:07 Arm band placed on right wrist. Patient placed in an exam room, on a stretcher. cm10 08:15 Patient has correct armband on for positive identification. Bed in low position. Call cm10 light in reach. Provided Education on: ER Process and procedures. Pulse ox on. NIBP on. 08:47 CT C Spine In Process Unspecified. EDMS 10:32 No provider procedures requiring assistance completed. Patient did not have IV access cm10 during this emergency room visit. Administered Medications: 09:19 Drug: Ketorolac IM 60 mg IM once Route: IM; Site: right gluteus; cm10 09:45 Follow up: Pain 7/10 Adult; Response: No adverse reaction; Pain is decreased cm10 09:19 Not Given (Patient Refused): [id number] mg PO once cm10 09:19 Drug: Dexamethasone PO 10 mg PO once Route: PO; cm10 09:45 Follow up: Pain 7/10 Adult; Response: No adverse reaction; Pain is decreased cm10 09:19 Not Given (Patient Refused): norco10 mg-325 mg 1 tabs PO once cm10 Medication: 10:32 VIS not applicable for this client. cm10 Outcome: 09:58 Discharge ordered by . rashid 10:32 Discharged to home ambulatory, cm10 10:32 Condition: good 10:32 Discharge instructions given to patient, Instructed on discharge instructions, follow up and referral plans. medication usage, Demonstrated understanding of instructions, follow-up care, medications, Prescriptions given X 4, 10:32 Patient left the ED. cm10 Signatures: Dispatcher [employer] EDND Clayton Montejo MD MD cha Mendoza, Itzel Latrice Dan, RN RN cm10
--- NOTE | 2025-04-02 09:59 | EDPHYS ---
Physician Documentation [facility] Name: Summer Perez Age: 35 yrs Sex: Female : 1990 Arrival Date: 04/02/2025 Time: 07:55 Bed 13 Private MD: IZAIAH Physician Clayton Montejo HPI: 04/02 09:49 This 35 yrs old Female presents to ER via Ambulatory with complaints of Neck rashid Pain, <24hrs Old, Shoulder Pain. 09:49 The patient or guardian complains of decreased range of motion, pain, that is acute. rashid The symptoms are located diffusely. Onset: The symptoms/episode began/occurred 3 day(s) ago. Context: The problem was sustained at an unknown location, The neck injury/problem resulted from from unknown cause. Associated signs and symptoms: The patient has no apparent associated signs or symptoms. The pain does not radiate. Modifying factors: The symptoms are alleviated by nothing. remaining still, the symptoms are aggravated by movement, pressure. Severity of symptoms: At their worst the symptoms were mild, in the emergency department the symptoms are unchanged. The patient has not experienced similar symptoms in the past. 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 - Infectious Disease History:: Denies. - Social history:: Smoking status: Patient denies any tobacco usage or history of. - Family history:: not pertinent. ROS: 09:49 Constitutional: Negative for fever, chills, and weight loss, Eyes: Negative for injury, rashid pain, redness, and discharge, ENT: Negative for injury, pain, and discharge, Cardiovascular: Negative for chest pain, palpitations, and edema, Respiratory: Negative for shortness of breath, cough, wheezing, and pleuritic chest pain, Abdomen/GI: Negative for abdominal pain, nausea, vomiting, diarrhea, and constipation, Back: Negative for injury and pain, : Negative for injury, bleeding, discharge, and swelling, Skin: Negative for injury, rash, and discoloration, Neuro: Negative for headache, weakness, numbness, tingling, and seizure, Psych: Negative for depression, anxiety, suicide ideation, homicidal ideation, and hallucinations, Allergy/Immunology: Negative for hives, rash, and allergies, Endocrine: Negative for neck swelling, polydipsia, polyuria, polyphagia, and marked weight changes, Hematologic/Lymphatic: Negative for swollen nodes, abnormal bleeding, and unusual bruising, 09:49 Neck: Positive for injury or acute deformity, pain with movement, pain at rest, tenderness, 09:49 MS/extremity: Positive for decreased range of motion, pain, tenderness, of the left trapezius, right trapezius, left scapular area, right scapular area and thoracic area, Exam: 09:49 Constitutional: This is a well developed, well nourished patient who is awake, alert, rashid and in no acute distress. Head/Face: Normocephalic, atraumatic. Eyes: Pupils equal round and reactive to light, extra-ocular motions intact. Lids and lashes normal. Conjunctiva and sclera are non-icteric and not injected. Cornea within normal limits. Periorbital areas with no swelling, redness, or edema. ENT: Nares patent. No nasal discharge, no septal abnormalities noted. Tympanic membranes are normal and external auditory canals are clear. Oropharynx with no redness, swelling, or masses, exudates, or evidence of obstruction, uvula midline. Mucous membranes moist. Chest/axilla: Normal chest wall appearance and motion. Nontender with no deformity. No lesions are appreciated. Cardiovascular: Regular rate and rhythm with a normal S1 and S2. No gallops, murmurs, or rubs. Normal PMI, no JVD. No pulse deficits. Respiratory: Lungs have equal breath sounds bilaterally, clear to auscultation and percussion. No rales, rhonchi or wheezes noted. No increased work of breathing, no retractions or nasal flaring. Abdomen/GI: Soft, non-tender, with normal bowel sounds. No distension or tympany. No guarding or rebound. No evidence of tenderness throughout. Skin: Warm, dry with normal turgor. Normal color with no rashes, no lesions, and no evidence of cellulitis. MS/ Extremity: Pulses equal, no cyanosis. Neurovascular intact. Full, normal range of motion., bilateral aka Neuro: Awake and alert, GCS 15, oriented to person, place, time, and situation. Cranial nerves II-XII grossly intact. Motor strength 5/5 in all extremities. Sensory grossly intact. Cerebellar exam normal. Normal gait. Psych: Awake, alert, with orientation to person, place and time. Behavior, mood, and affect are within normal limits. 09:49 Neck: External neck: is normal, no abrasions, no abscess, no cellulitis, no ecchymosis, no erythema, no laceration, no mass, no rash, no swelling, no tenderness, ROM/movement: pain, that is moderate, limited range of motion, that is moderate, Meningeal signs: are not present, nuchal rigidity, is not appreciated, Lymph nodes: no appreciated lymphadenopathy, Vital Signs: 08:04 BP 124 / 71; Pulse 83; Resp 18; Temp 98.1(O); Pulse Ox 100% on R/A; Weight 113.4 kg cm10 (R); Height 5 ft. 4 in. (R); Pain 10/10; 09:20 BP 118 / 73; Pulse 83; Resp 15; Pulse Ox 100% ; cm10 09:45 Pain 7/10; cm10 09:45 Pain 7/10; cm10 10:31 BP 107 / 84; Pulse 83; Resp 15; Pulse Ox 100% ; cm10 08:04 Body Mass Index 42.91 (113.40 kg, 162.56 cm) cm10 08:04 Pain Scale: Adult cm10 09:45 Pain Scale: Adult cm10 09:45 Pain Scale: Adult cm10 MDM: 08:02 Medical Screening Exam initiated rashid 09:54 Differential diagnosis: arthritis, C-Spine Fracture Cervical Disc Herniation Cervical rashid Raiculopathy Cervical Spondylosis cervical strain, Degenerative Disc Disease Neck Contusion. Data reviewed: vital signs, nurses notes, radiologic studies, CT scan. Consideration of Admission/Observation Escalation of care including admission/observation considered. I considered the following discharge prescriptions or medication management in the emergency department Medications were administered in the Emergency Department. See MAR. Independent interpretation of the following test(s) in the Emergency Department CT Scan: My interpretation is c c spine. Test considered but Not performed: Labs: no labs. Historians other than the Patient: pt well informed. Care significantly affected by the following chronic conditions: appy, rup. Counseling: I had a detailed discussion with the patient and/or guardian regarding the historical points, exam findings, and any diagnostic results supporting the discharge/admit diagnosis, radiology results, the need for outpatient follow up, for definitive care, a family practitioner. 04/02 08:33 Order name: CT C Spine; Complete Time: 09:14 rashid Administered Medications: 09:19 Drug: Ketorolac IM 60 mg IM once Route: IM; Site: right gluteus; cm10 09:45 Follow up: Pain 7/10 Adult; Response: No adverse reaction; Pain is decreased cm10 09:19 Not Given (Patient Refused): [id number] mg PO once cm10 09:19 Drug: Dexamethasone PO 10 mg PO once Route: PO; cm10 09:45 Follow up: Pain 7/10 Adult; Response: No adverse reaction; Pain is decreased cm10 09:19 Not Given (Patient Refused): norco10 mg-325 mg 1 tabs PO once cm10 Disposition Summary: 04/02/25 09:58 Discharge Ordered Notes: Location: Home rashid Problem: new rashid Symptoms: have improved rashid Condition: Stable rashid Diagnosis - Strain of muscle, fascia and tendon at neck level, initial encounter rashid - Torticollis rashid Followup: rashid - With: Private Physician - When: 2 - 3 days - Reason: Recheck today's complaints, Continuance of care, Re-evaluation by your physician Discharge Instructions: - Discharge Summary Sheet rashid - Musculoskeletal Pain rashid - Acute Torticollis, Adult rashid - Cervical Strain and Sprain Rehab-SportsMed rashid Forms: - Medication Reconciliation Form rashid - Antibiotic Education rashid - Prescription Opioid Use rashid - Patient Portal Instructions [facility] - Leadership Thank You Letter [facility] - Work release form ll1 Prescriptions: - Diclofenac Sodium 75 mg Oral Tablet Sustained Release - take 1 tablet ORAL route 2 times per day; 30 tablet; Refills: 0, Product rashid Selection Permitted - methocarbamol 750 mg Oral tablet - take 1 tablet ORAL route 4 times per day; 28 tablet; Refills: 0, Product [facility] Selection Permitted - Tylenol-Codeine #3 300mg-30mg Oral tablet - take 2 tablets ORAL route every 6 hours As needed; 20 tablet; Refills: 0, [facility] Product Selection Permitted - Dexamethasone 4mg Oral tablet - take 1 tablet ORAL route daily for 4 days; 4 tablet; Refills: 0, Product rashid Selection Permitted Signatures: Dispatcher [employer] Clayton Hardwick MD MD cha Martinez, Clarissa, TONY RN cm10
[2025-04-02 16:07] VITALS: TEMP 98.1; O2SAT 100
[2025-04-02 16:23] VITALS: BP 107/84
== END 2025-04-02 10:32 | disposition home or self-care (01) ==
LOC: ER 07:55
DX: S16.1XXA Strain of muscle, fascia and tendon at neck level, initial encounter (principal); M43.6 Torticollis
CPT/HCPCS: 72125; J1100